=== PATIENT | male | born 1965 ===

== ENCOUNTER 2018-04-18 11:06 | Outpatient (CLI) | payer MEDICAID | END 2018-04-18 11:07 | disposition home or self-care (01) | LOC: LAB 11:06 ==

== ENCOUNTER 2018-05-05 11:10 | Inpatient (IN) | payer MEDICAID ==
[2018-05-05 11:23] VITALS: BMI 21.1
[2018-05-05] MEDS ORDERED: Sodium Chloride 0.9% 1,000 ML IV STA (11:36)
[2018-05-05] MEDS ORDERED: Vancomycin 1gm in NS 250ml 1 GM/250 ML BAG IVPB STA (11:37)
--- NOTE | 2018-05-05 11:42 | ED PDOC ---
Arrival/HPI - General Chief Complaint: Male Genitourinary Time Seen by Provider: 05/05/18 11:12 Historian: Patient - History of Present Illness Narrative History of Present Illness (Text): 05/05/18 11:37 A 52 year old male, whose past medical history includes anal cancer, presents to the emergency department complaining of perineal rash x1 week. Patient reports he saw his oncologist, Dr. Bustillo, last Tuesday for similar symptoms. Patient notes he saw Dr. Bustillo earlier today with no change in his symptoms and was sent into the ER as Dr. Bustillo was concerned the problem may be an intra-abdominal issue. Per Dr. Bustillo, the patient failed his patient therapy of antibiotics. Patient denies any fever, chills, shortness of breath, chest pain, or any other complaints. Oncologist: Dr. Bustillo PMD: Dr. Benavidez Time/Duration: > week Symptom Onset: Gradual Symptom Course: Unchanged Activities at Onset: Light Context: Home Past Medical History - Provider Review Nursing Documentation Reviewed: Yes - Infectious Disease Hx of Infectious Diseases: None - Cardiac Hx Hypertension: No - Pulmonary Hx Tuberculosis: No - Neurological Hx Seizures: No - HEENT Hx HEENT Disorder: No - Renal Hx Renal Disorder: No - Endocrine/Metabolic Hx Endocrine Disorders: No - Hematological/Oncological Hx Anemia: No Hx Sickle Cell Disease: No - Musculoskeletal/Rheumatological Hx Falls: Yes (alcoholic) - Gastrointestinal Hx Gastrointestinal Disorders: No Hx Hemorrhoids: Yes (current chief complaint) - Genitourinary/Gynecological Hx Sexually Transmitted Diseases: No - Psychiatric Hx Depression: Yes Hx Substance Use: Yes - Surgical History Other/Comment: RIGHT CHEEK, LEFT BARROS SX - Anesthesia Hx Anesthesia: Yes Hx Anesthesia Reactions: No - Suicidal Assessment Feels Threatened In Home Enviroment: No Family/Social History - Physician Review Nursing Documentation Reviewed: Yes Family/Social History: No Known Family HX Smoking Status: Current Some Days Smoker Hx Alcohol Use: Yes Hx Substance Use: Yes Allergies/Home Meds Allergies/Adverse Reactions: Allergies No Known Allergies Allergy (Verified 05/05/18 11:26) Home Medications: Home Meds Medication Instructions Recorded Confirmed Emtricitabine/Tenofovir Diso 1 tab PO DAILY 02/06/18 04/23/18 [Truvada 200 MG-300 MG] Ergocalciferol [Drisdol 50,000 50,000 iu PO Q7D 02/06/18 04/23/18 Intl Units Cap] Mirtazapine [Remeron] 15 mg PO HS 02/06/18 04/23/18 Naproxen 500 mg PO BID PRN 02/06/18 04/23/18 Raltegravir Potassium [Isentress] 400 mg PO BID 02/06/18 04/23/18 traZODone [Desyrel] 50 mg PO HS 02/06/18 04/23/18 Review of Systems - Physician Review All systems were reviewed & negative as marked: Yes - Review of Systems Constitutional: absent: Fevers Respiratory: absent: SOB Physical Exam - Physical Exam Narrative Physical Exam (Text): 05/05/18 11:37 Constitutional: No acute distress. Head: Normocephalic. Atraumatic. Eyes: PERRL. ENT: Moist mucous membranes. Neck: Supple. Cardiovascular: Regular rate. Chest: No tenderness. Respiratory: Clear to auscultation bilaterally. GI: Soft. Nontender. Nondistended. : Erythematous, diffused to bilateral inguinal area, scrotal area, and base of penis area, warm to touch, tender. Back: No CVA tenderness. Musculoskeletal: No tenderness or swelling of extremities. Skin: As above. Neurologic: Alert, no focal deficit. Vital Signs Reviewed: Yes Vital Signs Temp Pulse Resp BP Pulse Ox 05/05/18 11:23 98.6 F 96 H 20 117/81 99 Temperature: Afebrile Blood Pressure: Normal Pulse: Tachycardic Respiratory Rate: Normal Appearance: Positive for: Well-Appearing, Non-Toxic Medical Decision Making ED Course and Treatment: 05/05/18 11:37 Impression: 52 year old male presents to the emergency department complaining of perineal rash x1 week. Plan: -- Type and screen -- CT of abdomen and pelvis -- EKG -- Labs -- CBC -- COAGs -- Chest X-ray -- IV fluids -- Vancomycin -- Blood culture -- Urine culture -- Urinalysis -- Reassess and disposition Prior Visits: Notes and results from previous visits were reviewed. Progress Notes: 05/05/18 12:04 EKG: Ordered, reviewed, and independently interpreted the EKG. Rate : 87 BPM Rhythm : NSR Interpretation : No ST-segment elevations. 05/05/18 14:10 Procedure: Chest X-ray Dictator: Amauri Conrad MD Impression: No active disease. 05/05/18 15:46 Procedure: CT of abdomen and pelvis Dictator: Pramod Bryan MD Impression: No evidence of perianal abscess formation. 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 Moderate circumferential urinary bladder wall thickening. Additional findings as discussed above. Dr. Mukherjee accepts patient to hospitalist service. - Scribe Statement The provider has reviewed the documentation as recorded by the Scribe Viktoria Zarate All medical record entries made by the Scribe were at my direction and personally dictated by me. I have reviewed the chart and agree that the record accurately reflects my personal performance of the history, physical exam, medical decision making, and the department course for this patient. I have also personally directed, reviewed, and agree with the discharge instructions and disposition. Disposition/Present on Arrival - Present on Arrival Any Indicators Present on Arrival: No History of DVT/PE: No History of Uncontrolled Diabetes: No Urinary Catheter: No History of Decub. Ulcer: No History Surgical Site Infection Following: None - Disposition Have Diagnosis and Disposition been Completed?: Yes Diagnosis: Cellulitis, Failure of outpatient treatment Disposition: HOSPITALIZED Disposition Time: 12:00 Patient Plan: Admission Condition: GUARDED Discharge Instructions (ExitCare): Cellulitis (ED) Forms: [employer] (Tajik)
[2018-05-05 12:15] LABS: URINE BILIRUBIN NEGATIVE (NEGATIVE); URINE BLOOD NEGATIVE (NEGATIVE); URINE GLUCOSE (UA) NEGATIVE (NEGATIVE); URINE LEUKOCYTE ESTERASE NEGATIVE Leu/uL (NEGATIVE); URINE PROTEIN TRACE mg/dL (<30 mg/dL); URINE UROBILINOGEN 0.2 E.U./dL (<1 E.U./dL)
[2018-05-05 12:18] LABS: URINE APPEARANCE CLEAR (CLEAR); URINE COLOR DARK YELLOW (YELLOW)
[2018-05-05 12:29] LABS: URINE RBC 0 - 2 /hpf (0-2)
[2018-05-05 12:30] LABS: URINE AMORPHOUS SEDIMENT SMALL /hpf; URINE BACTERIA MANY /hpf; URINE EPITHELIAL CELLS 0 - 2 /hpf (0-5)
[2018-05-05 12:59] LABS: ALBUMIN 3.4 g/dL (3.0-4.8); ALT/SGPT 153 U/L (7-56); AST/SGOT 107 U/L (17-59); BLOOD UREA NITROGEN 14 mg/dL (7-21); CALCIUM 8.5 mg/dL (8.4-10.5); GFR NON-AFRICAN AMERICAN > 60
[2018-05-05 13:00] LABS: HEMOGLOBIN 10.8 g/dL (14.0-18.0); LYMPH # 0.1 (1.2-3.4); LYMPH % 8.8 % (22.0-35.0); MEAN CELL VOLUME 87.3 fl (80.0-105.0); MEAN CORPUSCULAR HEMOGLOBIN 28.5 pg (25.0-35.0); MEAN CORPUSCULAR HGB CONC 32.6 g/dl (31.0-37.0); MEAN PLATELET VOLUME 10.2 fl (7.0-11.0); MONO # 0.1 (0.1-0.6); MONO % 12.7 % (1.0-6.0); PLATELET COUNT 176 10^3/uL (120.0-450.0); RBC 3.79 10^6/uL (3.5-6.1); RED CELL DISTRIBUTION WIDTH 16.2 % (11.5-14.5)
[2018-05-05 13:03] LABS: PARTIAL THROMBOPLASTIN TIME 29.1 Seconds (26.9-38.3); PROTHROMBIN TIME 11.1 SECONDS (9.4-12.5)
[2018-05-05] MEDS ORDERED: Iohexol 350 MG/100 ML VIAL ONE (13:07)
--- NOTE | 2018-05-05 14:06 | RAD ---
Date of service: 05/05/2018 PROCEDURE: CHEST RADIOGRAPH, 1 VIEW HISTORY: perineal cellulitis COMPARISON: None available. FINDINGS: LUNGS: Clear. PLEURA: No pneumothorax or pleural fluid seen. CARDIOVASCULAR: No aortic atherosclerotic calcification present. Normal. OSSEOUS STRUCTURES: No significant abnormalities. VISUALIZED UPPER ABDOMEN: Normal. OTHER FINDINGS: None. IMPRESSION: No active disease.
[2018-05-05 14:10] LABS: ANISOCYTOSIS 1+; HYPOCHROMIA 1+; LYMPHOCYTE 18 % (22.0-35.0); MONOCYTE 2 % (1.0-6.0); NEUTROPHIL 80 % (50.0-70.0); PLATELET ESTIMATE NORMAL (NORMAL)
[2018-05-05 14:11] LABS: OVALOCYTES SLIGHT; TOXIC GRANULATION 1+
--- NOTE | 2018-05-05 15:41 | CT ---
Date of service: 05/05/2018 PROCEDURE: CT Abdomen and Pelvis with contrast HISTORY: perineal cellulitis, r/o abscess COMPARISON: Comparison is made with the previous PET-CT dated 03/09/2018 TECHNIQUE: Contrast dose: 100 mL of Omnipaque 350 intravenously. Axial and reformatted coronal and sagittal CT images of the abdomen and pelvis were obtained after IV contrast administration. Radiation dose: Total exam DLP = 234.04 mGy-cm. This CT exam was performed using one or more of the following dose reduction techniques: Automated exposure control, adjustment of the mA and/or kV according to patient size, and/or use of iterative reconstruction technique. FINDINGS: LOWER THORAX: No evidence of infiltrate or consolidation in the lungs. LIVER: The liver is enlarged. No evidence of suspicious mass in the liver. The portal vein is patent. GALLBLADDER AND BILE DUCTS: The gallbladder is contracted. No CT evidence of acute cholecystitis. PANCREAS: Unremarkable. No gross lesion or ductal dilatation. SPLEEN: Unremarkable. ADRENALS: Unremarkable. No mass. KIDNEYS AND URETERS: Unremarkable. No hydronephrosis. No solid mass. VASCULATURE: Unremarkable. No aortic aneurysm. No aortic atherosclerotic calcification or mural plaque present. BOWEL: No obstruction. No gross mural thickening. Cqbi-xo-aklfwslb constipation is noted. There is diffuse thickening of the distal rectum and anal canal noted. No definite CT evidence of perianal abscess. APPENDIX: No evidence of appendicitis. PERITONEUM: Unremarkable. No free fluid. No free air. LYMPH NODES: There are mildly enlarged lymph nodes in at the inguinal region left more than right again noted. BLADDER: Uffs-ph-[id number] circumferential urinary bladder wall thickening is noted. REPRODUCTIVE: The prostate is mildly enlarged. BONES: There is a defined lytic bony lesion noted at the anterior aspect of L1 vertebral body. OTHER FINDINGS: None. IMPRESSION: No evidence of perianal abscess formation. 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 Moderate circumferential urinary bladder wall thickening. Additional findings as discussed above.
[2018-05-05] MEDS: Piperacillin/Tazobact 3.375 gm 100 ML IVPB SCH ×2 (18:23→22:21)
[2018-05-05] MEDS: Vancomycin 1gm in NS 250ml 1 GM/250 ML BAG IVPB SCH (18:30)
--- NOTE | 2018-05-05 19:18 | CP.PCM.HP ---
<MaximoWhit - Last Filed: 05/05/18 23:47> History of Present Illness - History of Present Illness History of Present Illness: Whit Marsh, PGY-1 H&P Medicine Note for: Dr. Mukherjee CC: Burning pain in perineal area Pt is a 52 yo M with pmhx of AIDS (last CD4 count <20 on 04/25/18), anal ca who comes in to the ED for complaint of perirectal pain related to his current treatment regiment of chemo and radiation. Pt states that he received his last chemo treatment three days ago and that he receives radiation to the area M-F. Pt states that he has been having 10/10 pain in the area and he deneis any constipation or diarrhea, any bladder or bowel incontinence. He admits to an external hemorrhoid but states that it does not cause him pain during defication at this time due to him taking stool softeners to prevent him straining. He took an outpt course of abx and has not responded and presents to the ED from doctors office to r/o intra-abd infection. Pt states that he has not had any fevers, chills, SOB, cough, chest pain, palpations, abd pain, n/v, c/d, dysuria, or hematuria. Pmhx: Anal Ca, AIDS (CD4 count <20 on 04/25/18) Pshx: Deneis Meds: Truvada, hydrocortisone 2.5% topical All: NKDA Social: quit smoking 30 years ago, denies recent etoh or illicit drug use (though has hx of IVDA) Fam hx: Denies PMD: [facility]: [facility] Present on Admission - Present on Admission Any Indicators Present on Admission: No Review of Systems - Review of Systems Review of Systems: 12 point ROS reviewed and negative except for noted in HPI above. Past Patient History - Infectious Disease Hx of Infectious Diseases: None - Past Medical History & Family History Past Medical History?: Yes - Past Social History Smoking Status: Current Some Days Smoker - CARDIAC Hx Hypertension: No - PULMONARY Hx Tuberculosis: No - NEUROLOGICAL Hx Seizures: No - HEENT Hx HEENT Problems: No - RENAL Hx Chronic Kidney Disease: No - ENDOCRINE/METABOLIC Hx Endocrine Disorders: No - HEMATOLOGICAL/ONCOLOGICAL Hx Anemia: No Hx Sickle Cell Disease: No - MUSCULOSKELETAL/RHEUMATOLOGICAL Hx Falls: Yes (alcoholic) - GASTROINTESTINAL Hx Gastrointestinal Disorders: No Hx Hemorrhoids: Yes (current chief complaint) - GENITOURINARY/GYNECOLOGICAL Hx Sexually Transmitted Disorders: No - PSYCHIATRIC Hx Depression: Yes Hx Substance Use: Yes - SURGICAL HISTORY Other/Comment: RIGHT CHEEK, LEFT BARROS SX - ANESTHESIA Hx Anesthesia: Yes Hx Anesthesia Reactions: No Meds Allergies/Adverse Reactions: Allergies Allergy/AdvReac Type Severity Reaction Status Date / Time No Known Allergies Allergy Verified 05/05/18 11:26 Physical Exam - Constitutional Appears: Non-toxic, No Acute Distress, Other (Uncomfortable) - Head Exam Head Exam: ATRAUMATIC, NORMAL INSPECTION, NORMOCEPHALIC - Eye Exam Eye Exam: EOMI, Normal appearance, PERRL - Respiratory Exam Respiratory Exam: Clear to Auscultation Bilateral, NORMAL BREATHING PATTERN. absent: Accessory Muscle Use, Prolonged Expiratory Phase, Rales, Rhonchi, Wheezes - Cardiovascular Exam Cardiovascular Exam: RRR, +S1, +S2. absent: Gallop, Rubs - GI/Abdominal Exam GI & Abdominal Exam: Normal Bowel Sounds, Soft. absent: Distended, Firm, Guarding, Tenderness - Rectal Exam Rectal Exam: Hemorrhoids (external) Additional comments: Pt also has noted skin breakdown surrounding the anal canal. There is discoloration over the pts gluteal area which is likely 2/2 radiation. Pt is also noted to have discoloration of scrotum also likely 2/2 radiation exposure from treatment. There is no noted purulent discharge around skin breakdown noted on exam. - Extremities Exam Extremities exam: Positive for: normal capillary refill, normal inspection, pedal pulses present - Back Exam Back exam: NORMAL INSPECTION. absent: CVA tenderness (L), CVA tenderness (R) - Neurological Exam Neurological exam: Alert, Oriented x3 - Psychiatric Exam Psychiatric exam: Normal Affect, Normal Mood - Skin Skin Exam: Dry, Normal Color, Warm Results - Vital Signs Recent Vital Signs: Last Vital Signs Temp 98.6 F 05/05/18 11:23 Pulse 90 05/05/18 18:09 Resp 18 05/05/18 18:09 BP 130/77 05/05/18 18:09 Pulse Ox 98 05/05/18 18:09 - Labs Result Diagrams: 05/05/18 12:30 01/25/19 12:30 Labs: Laboratory Results - last 24 hr 05/05/18 05/05/18 05/05/18 11:55 12:30 12:30 WBC 1.0 L* RBC 3.79 Hgb 10.8 L Hct 33.1 L MCV 87.3 MCH 28.5 MCHC 32.6 RDW 16.2 H Plt Count 176 MPV 10.2 Neut % (Auto) 73.1 H Lymph % (Auto) 8.8 L [place] % (Auto) 12.7 H Eos % (Auto) 2.0 Baso % (Auto) 0.0 Lymph # (Auto) 0.1 L [place] # (Auto) 0.1 Eos # (Auto) 0.0 Baso # (Auto) 0.00 Absolute Neuts (auto) 0.76 L Neutrophils % (Manual) 80 H Lymphocytes % (Manual) 18 L Monocytes % (Manual) 2 Toxic Granulation 1+ Platelet Evaluation Normal Hypochromasia 1+ Anisocytosis (manual) 1+ Ovalocytes Slight PT 11.1 INR 1.00 APTT 29.1 Sodium Potassium Chloride Carbon Dioxide Anion Gap BUN Creatinine Est GFR ( Amer) Est GFR (Non-Af Amer) Random Glucose Calcium Phosphorus Magnesium Total Bilirubin AST ALT Alkaline Phosphatase Total Protein Albumin Globulin Albumin/Globulin Ratio Urine Color Dark yellow Urine Appearance Clear Urine pH 6.0 Ur Specific [place] >= 1.030 Urine Protein Trace H Urine Glucose (UA) Negative Urine Ketones Negative Urine Blood Negative Urine Nitrate Negative Urine Bilirubin Negative Urine Urobilinogen 0.2 Ur Leukocyte Esterase Negative Urine RBC 0 - 2 Urine WBC 1 - 3 Ur Epithelial Cells 0 - 2 Amorphous Sediment Small Urine Bacteria Many Blood Type Blood Type Confirm Antibody Screen BBK History Checked 05/05/18 05/05/18 05/05/18 12:30 13:00 14:00 WBC RBC Hgb Hct MCV MCH MCHC RDW Plt Count MPV Neut % (Auto) Lymph % (Auto) [place] % (Auto) Eos % (Auto) Baso % (Auto) Lymph # (Auto) [place] # (Auto) Eos # (Auto) Baso # (Auto) Absolute Neuts (auto) Neutrophils % (Manual) Lymphocytes % (Manual) Monocytes % (Manual) Toxic Granulation Platelet Evaluation Hypochromasia Anisocytosis (manual) Ovalocytes PT INR APTT Sodium 137 Potassium 3.8 Chloride 105 Carbon Dioxide 27 Anion Gap 9 L BUN 14 Creatinine 0.6 L Est GFR ( Amer) > 60 Est GFR (Non-Af Amer) > 60 Random Glucose 89 Calcium 8.5 Phosphorus 3.3 Magnesium 2.3 H Total Bilirubin 0.6 AST 107 H D ALT 153 H Alkaline Phosphatase 69 Total Protein 7.0 Albumin 3.4 Globulin 3.5 Albumin/Globulin Ratio 1.0 L Urine Color Urine Appearance Urine pH Ur Specific [place] Urine Protein Urine Glucose (UA) Urine Ketones Urine Blood Urine Nitrate Urine Bilirubin Urine Urobilinogen Ur Leukocyte Esterase Urine RBC Urine WBC Ur Epithelial Cells Amorphous Sediment Urine Bacteria Blood Type A POSITIVE Blood Type Confirm A POSITIVE Antibody Screen Negative BBK History Checked No verified bt Assessment & Plan - Assessment and Plan (Free Text) Assessment: Pt is a 52 yo M with pmhx of AIDS (last CD4 count <20 on 04/25/18), anal ca who comes in to the ED for complaint of perirectal pain related to his current treatment regiment of chemo and radiation. Pt had CT done in ED and it showed no perianal abscess. It also showed moderate diffuse thickening of the distal rectum and anal canal - prelim read. Plan: 1) Amara-anal scarring: - Pt has noted breakdown in the perianal region - Miralax and colace given to ensure that the pt doesnt strain - Pt is currently being treated with zosyn and vanc - Pt given hydrocortisone cream - ID consulted - Wound consult placed 2) AIDS: - Pt last CD4 count is noted to be <20 on 04/25/16 - TMP/SMX DS tab 3x/wk - Zithromax 1200mg qwk - CXR: NAD 3) Leukopenia: - Likely 2/2 to combination of AIDS and marrow supression from chemo agents - Placed on neutropenic precautions - Heme/Onc consulted PPx: DVT: Lovenox GI: protonix Seen and discussed with Dr. Yaz Marsh, PGY-1 <Jude Mukherjee - Last Filed: 05/06/18 18:39> Results - Vital Signs Recent Vital Signs: Last Vital Signs Temp 100.5 F H 05/06/18 17:19 Pulse 86 05/06/18 17:12 Resp 19 05/06/18 17:12 BP 123/80 05/06/18 17:12 Pulse Ox 95 05/06/18 17:12 - Labs Result Diagrams: 05/06/18 05:00 05/06/18 05:00 Labs: Laboratory Results - last 24 hr 05/06/18 05/06/18 05:00 05:00 WBC 1.0 L* RBC 3.74 Hgb 10.8 L Hct 32.5 L MCV 86.9 MCH 28.9 MCHC 33.2 RDW 15.8 H Plt Count 174 MPV 10.1 Neut % (Auto) 67.7 Lymph % (Auto) 12.7 L [place] % (Auto) 17.6 H Eos % (Auto) 2.0 Baso % (Auto) 0.0 Lymph # (Auto) 0.1 L [place] # (Auto) 0.2 Eos # (Auto) 0.0 Baso # (Auto) 0.00 Absolute Neuts (auto) 0.69 L Sodium 137 Potassium 4.4 Chloride 104 Carbon Dioxide 28 Anion Gap 9 L BUN 10 Creatinine 0.7 L Est GFR ( Amer) > 60 Est GFR (Non-Af Amer) > 60 Random Glucose 93 Calcium 8.5 Total Bilirubin 0.8 AST 99 H ALT 141 H Alkaline Phosphatase 84 Total Protein 7.0 Albumin 3.5 Globulin 3.6 Albumin/Globulin Ratio 1.0 L Attending/Attestation - Attestation I have personally seen and examined this patient.: Yes I have fully participated in the care of the patient.: Yes I have reviewed all pertinent clinical information: Yes Notes (Text): 05/06/18 18:33 Attending note; Patient seen and examined with resident in ER. Patient is complaining of chills. Denies any fevers. Complaining of severe pain in the perianal area/ buttock area. Patient is a 52-year-old male with pmhx of AIDS (last CD4 count <20 on 04/25/18), anal cancer who comes in to the ED for complaint of perirectal pain related to his current treatment regiment of chemo and radiation. Pt states that he receive d his last chemo treatment three days ago and that he receives radiation to the area Tuesday to Tuesday. Patient was sent in by radiation oncologist for increasing redness/tenderness in the radiation site. 1. Cellulitis versus radiation induced skin changes; started on IV vancomycin and Zosyn. ID evaluation requested. 2. Neutropenia; WBC count is 1. Case discussed with oncology Dr. Ren in detail. Monitor for fever. On neutropenic precautions. 3. AIDS; patient is on Isentress and Truvuda. Last CD4 count was less than 20. Started on Zithromax for Mac prophylaxis. Started on Bactrim for PCP prop hylaxis. 4. Severe pain; status post radiation. CT scan showed no evidence of perianal abscess. Showed thickening of the rectal and anal wall and moderate constipation. Continue Anusol cream. 5. Constipation; continue MiraLAX and Colace. 6. Homelessness; we'll get psychotherapist social worker evaluation. Prognosis is poor secondary to AIDS, advanced cancer and homelessness. Monitor patient closely. Upon discharge patient will follow-up with Dr. Ren oncology and Dr. Bustillo radiation oncology.
[2018-05-05] MEDS: Hydrocortisone 2.5% Rectal Cream(30 gm) PR SCH (22:22)
--- NOTE | 2018-05-05 23:23 | CARD ---
APPROVED REPORT Date of service: 05/05/2018 EKG Measurement Heart [id number] <Conclusion> Poor data quality, interpretation may be adversely affected Normal sinus rhythm Normal ECG
[2018-05-06] MEDS: Vancomycin 1gm in NS 250ml 1 GM/250 ML BAG IVPB SCH ×2 (05:58→17:18)
[2018-05-06] MEDS: Pantoprazole 40 mg EC Tab PO SCH (05:58)
[2018-05-06 06:42] LABS: HEMOGLOBIN 10.8 g/dL (14.0-18.0); LYMPH # 0.1 (1.2-3.4); LYMPH % 12.7 % (22.0-35.0); MEAN CELL VOLUME 86.9 fl (80.0-105.0); MEAN CORPUSCULAR HEMOGLOBIN 28.9 pg (25.0-35.0); MEAN CORPUSCULAR HGB CONC 33.2 g/dl (31.0-37.0); MEAN PLATELET VOLUME 10.1 fl (7.0-11.0); MONO # 0.2 (0.1-0.6); MONO % 17.6 % (1.0-6.0); RBC 3.74 10^6/uL (3.5-6.1); RED CELL DISTRIBUTION WIDTH 15.8 % (11.5-14.5)
[2018-05-06 06:51] LABS: ALBUMIN 3.5 g/dL (3.0-4.8); ALT/SGPT 141 U/L (7-56); AST/SGOT 99 U/L (17-59); BLOOD UREA NITROGEN 10 mg/dL (7-21); CALCIUM 8.5 mg/dL (8.4-10.5); GFR NON-AFRICAN AMERICAN > 60
[2018-05-06] MEDS ORDERED: Aluminum Hydroxide/Magnesium 30 ML, DiphenhydrAMINE 75 MG, Lidocaine 2% Viscous 30 ML PO PRN (09:46)
[2018-05-06] MEDS: POLYETHYLENE GLYCOL 3350 17 GM/Dose PACKET PO SCH (10:44)
[2018-05-06] MEDS: Enoxaparin 40 mg Syringe SC SCH (10:44)
[2018-05-06] MEDS: Emtricitabine-Tenofovir 200 mg-300 mg Tab PO SCH (10:44)
[2018-05-06] MEDS: Hydrocortisone 2.5% Rectal Cream(30 gm) PR SCH ×2 (10:45→17:19)
[2018-05-06] MEDS: Calamine-Zinc Oxide Lotion (120 ml) TOP SCH ×2 (10:52→17:19)
--- NOTE | 2018-05-06 14:41 | CP.PCM.PN ---
<Frank Conley - Last Filed: 05/06/18 14:34> Subjective - Date & Time of Evaluation Date of Evaluation: 05/06/18 Time of Evaluation: 14:34 - Subjective Subjective: Frank Conley D.O. PGY-3, Internal Medicine Resident, Hospitalist Progress Note 52 year old male with a PMH of AIDS, anal carcinoma s/p chemo and radiation who presented with perirectal pain. Patient was seen and evaluated at bedside. States that he had been having some tongue pain. Rectum still painful. States has a chronic dry cough. Overall ill. Objective - Vital Signs/Intake and Output Vital Signs (last 24 hours): Temp Pulse Resp BP Pulse Ox 99.2 F 92 H 18 131/81 99 05/05/18 19:29 05/05/18 19:29 05/06/18 02:33 05/05/18 19:29 05/05/18 19:29 - Medications Medications: Current Medications Atovaquone (Mepron) 750 mg PO BID [facility]; Protocol Stop: 05/15/18 18:01 Azithromycin (Zithromax) 1,200 mg PO QWK [facility]; Protocol Calamine (Calamine Lotion) 0 ml TOP BID [facility] Last Admin: 05/06/18 10:52 Dose: 120 ml Al Hydrox/Mg Hydrox/Simethicone 30 ml/Diphenhydramine HCl 75 mg/Lidocaine 30 ml 0 ml PO Q2H PRN PRN Reason: Mouth/Throat Pain Docusate Sodium (Colace) 100 mg PO DAILY [facility] Last Admin: 05/06/18 10:44 Dose: 100 mg Emtricitabine/Tenofovir (Truvada 200 Mg-300 Mg) 1 tab PO DAILY [facility]; Protocol Last Admin: 05/06/18 10:44 Dose: 1 tab Enoxaparin Sodium (Lovenox) 40 mg SC DAILY [facility]; Protocol Last Admin: 05/06/18 10:44 Dose: 40 mg Hydrocortisone (Anusol-Hc) 0 gm MO BID [facility] Last Admin: 05/06/18 10:45 Dose: 1 applic Vancomycin HCl (Vancomycin 1gm) 1 gm in 250 mls @ 167 mls/hr IVPB Q12H [facility]; Protocol Last Admin: 05/06/18 05:58 Dose: 167 mls/hr Pantoprazole Sodium (Protonix Ec Tab) 40 mg PO 0600 [facility] Last Admin: 05/06/18 05:58 Dose: 40 mg Polyethylene Glycol (Miralax) 17 gm PO DAILY [facility] Last Admin: 05/06/18 10:44 Dose: 17 gm Raltegravir (Isentress) 400 mg PO BID [facility]; Protocol Last Admin: 05/06/18 10:44 Dose: 400 mg - Labs Labs: 05/06/18 05:00 05/06/18 05:00 PT 11.1 SECONDS (9.4-12.5) 05/05/18 12:30 INR 1.00 05/05/18 12:30 APTT 29.1 Seconds (26.9-38.3) 05/05/18 12:30 - Constitutional Appears: Uncomfortable appearing cachectic male, Non-toxic, No Acute Distress - Head Exam Head Exam: ATRAUMATIC, NORMAL INSPECTION, NORMOCEPHALIC, pharynx with no erythema or lesions, bases of tongue with shall ulcerations - Eye Exam Eye Exam: EOMI, PERRL - Respiratory Exam Respiratory Exam: Clear to Auscultation Bilateral, absent: Accessory Muscle Use, Prolonged Expiratory Phase, Rales, Rhonchi, Wheezes - Cardiovascular Exam Cardiovascular Exam: RRR, +S1, +S2. absent: Gallop, Rubs - GI/Abdominal Exam GI & Abdominal Exam: Normal Bowel Sounds, Soft. absent: Distended, Firm, Guarding, Tenderness - Rectal Exam Rectal Exam: Hemorrhoids (external), skin breakdown surrounding rectum, radiation skin changes, mildly tender, no fluid collection, no discharge - Extremities Exam Extremities exam: Positive for: normal capillary refill, normal inspection, pedal pulses present - Back Exam Back exam: NORMAL INSPECTION. absent: CVA tenderness (L), CVA tenderness (R) - Neurological Exam Neurological exam: Alert, Oriented x4 - Skin Skin Exam: Dry, Normal Color, Warm Assessment and Plan - Assessment and Plan (Free Text) Assessment: 52 year old male with a PMH of AIDS, anal carcinoma s/p chemo and radiation who presented with perirectal pain. Plan: 1. Moderate neutropenia Likely 2/2 to combination of AIDS and marrow suppression from chemo agents Placed on neutropenic precautions Heme/Onc consulted 2. AIDS Last known CD4 is <20 Cont TMP/SMX DS tab 3x/wk, Zithromax 1200mg qwk for ppx Cont antiretroviral therapy with truvada and raltegravir 3. Rectal pain Likely 2/2 to post radiation skin changes Cont miralax and colace to ensure smooth, soft bowel movements 05/05 CT A/P showed no fluid collection near rectum, only inflammation Cont anusol Start calamine lotion 4. Dry cough Given AIDS status with very low CD4 count will consult ID Pending recs Start cepacol 5. Tongue lesions Possible mucositis 2/2 chemo vs AIDS related, although does not appear infectious Start magic mouth wash Ppx: lovenox/protonix Patient was seen and examined and case was discussed at length during rounds with attending physician Dr. Yaz Pierson <Jude Mukherjee - Last Filed: 05/06/18 18:44> Objective - Vital Signs/Intake and Output Vital Signs (last 24 hours): Temp Pulse Resp BP Pulse Ox 100.5 F H 86 19 123/80 95 05/06/18 17:19 05/06/18 17:12 05/06/18 17:12 05/06/18 17:12 05/06/18 17:12 - Medications Medications: Current Medications Acetaminophen (Tylenol 325mg Tab) 650 mg PO Q4H PRN PRN Reason: Fever >100.4 F Last Admin: 05/06/18 17:19 Dose: 650 mg Atovaquone (Mepron) 750 mg PO BID [facility]; Protocol Stop: 05/15/18 18:01 Last Admin: 05/06/18 17:19 Dose: 750 mg Azithromycin (Zithromax) 1,200 mg PO QWK [facility]; Protocol Benzocaine/Menthol (Cepacol Sore Throat) 1 suellen MT Q2H PRN PRN Reason: Sore Throat Calamine (Calamine Lotion) 0 ml TOP BID [facility] Last Admin: 05/06/18 17:19 Dose: 1 ml Al Hydrox/Mg Hydrox/Simethicone 30 ml/Diphenhydramine HCl 75 mg/Lidocaine 30 ml 0 ml PO Q2H PRN PRN Reason: Mouth/Throat Pain Last Admin: 05/06/18 17:25 Dose: 1 soln Docusate Sodium (Colace) 100 mg PO DAILY [facility] Last Admin: 05/06/18 10:44 Dose: 100 mg Emtricitabine/Tenofovir (Truvada 200 Mg-300 Mg) 1 tab PO DAILY [facility]; Protocol Last Admin: 05/06/18 10:44 Dose: 1 tab Enoxaparin Sodium (Lovenox) 40 mg SC DAILY [facility]; Protocol Last Admin: 05/06/18 10:44 Dose: 40 mg Hydrocortisone (Anusol-Hc) 0 gm MO BID [facility] Last Admin: 05/06/18 17:19 Dose: 1 applic Pantoprazole Sodium (Protonix Ec Tab) 40 mg PO 0600 [facility] Last Admin: 05/06/18 05:58 Dose: 40 mg Polyethylene Glycol (Miralax) 17 gm PO DAILY [facility] Last Admin: 05/06/18 10:44 Dose: 17 gm Raltegravir (Isentress) 400 mg PO BID [facility]; Protocol Last Admin: 05/06/18 17:19 Dose: 400 mg - Labs Labs: 05/06/18 05:00 05/06/18 05:00 PT 11.1 SECONDS (9.4-12.5) 05/05/18 12:30 INR 1.00 05/05/18 12:30 APTT 29.1 Seconds (26.9-38.3) 05/05/18 12:30 Attending/Attestation - Attestation I have personally seen and examined this patient.: Yes I have fully participated in the care of the patient.: Yes I have reviewed all pertinent clinical information, including history, physical exam and plan: Yes Notes (Text): 05/06/18 18:41 Attending note; Patient seen and examined with resident. Patient is complaining of chills. No fever in the morning. Complaining of severe pain in the perianal area pain. Complaining of throat pain and difficulty swallowing. Patient is a 52-year-old male with pmhx of AIDS (last CD4 count <20 on 04/25/18), anal cancer who comes in to the ED for complaint of perirectal pain related to his current treatment regiment of chemo and radiation. Pt states that he received his last chemo treatment three days ago and that he receives radiation to the area Tuesday to Tuesday. Patient was sent in by radiation oncologist for increasing redness/tenderness in the radiation site. 1. Cellulitis versus radiation induced skin changes; ID evaluation appreciated. Most likely radiation-induced changes. Antibiotics stopped. Blood culture and urine culture is negative so far. 2. Neutropenia; WBC count is 1. Case discussed with oncology Dr. Ren in detail. Monitor for fever. On neutropenic precautions. 3. AIDS; patient is on Isentress and Truvuda. Last CD4 count was less than 20. Started on Zithromax for Mac prophylaxis. Bactrim stopped secondary to neutropenia. Started on atovaquone for PCP prophylaxis. 4. Severe pain; status post radiation. CT scan showed no evidence of perianal abscess. Showed thickening of the rectal and anal wall and moderate constipation. Continue Anusol cream. 5. Constipation; continue MiraLAX and Colace. 6. Mucositis; continue magic mouthwash on Cepacol lozenges. 6. Homelessness; we'll get health social work professor evaluation. Patient had MAXIMUM TEMPERATURE of 100.5 in the evening. Started on vancomycin and cefepime. We will follow up with ID closely. Prognosis is poor secondary to AIDS, advanced cancer and homelessness. Monitor patient closely. Upon discharge patient will follow-up with Dr. Ren oncology and Dr. Bustillo radiation oncology.
[2018-05-06] MEDS: Atovaquone 750 mg/5 ml Susp UD PO SCH (17:19)
--- NOTE | 2018-05-06 17:40 | CON ---
DATE: 05/06/2018 LOCATION: The patient seen earlier today room 364, bed 2. CHIEF COMPLAINT: Pain around his scrotal area times several days. HISTORY OF PRESENT ILLNESS: This is a 52-year-old male with a history of anal cancer and saw his oncologist Dr. Bustillo. The patient concerned about pain that is around his scrotal area and perineal area. He had received radiation for his anal cancer. He denies any fevers or chills and no nausea or vomiting. 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 PAST MEDICAL HISTORY: Significant for the squamous cell anal cancer and also end-stage AIDS with a CD4 count of less than 20. Noncompliant with his medications. PAST SURGICAL HISTORY: Noncontributory. ALLERGIES: THE PATIENT HAS NO KNOWN ALLERGIES. MEDICATIONS: He states he is on Truvada, but he does not know all the names of his HIV medication, he is noncompliant with them. SOCIAL HISTORY: The patient has a history of intravenous drug abuse and at this time he states he is homeless. He also suffers from depression, alcohol abuse, and tobacco use. REVIEW OF SYSTEMS: A 12-point review of systems is otherwise reviewed. PHYSICAL EXAMINATION: GENERAL: He is in bed appearing chronically ill, debilitating, cachectic. VITAL SIGNS: Temperature of 98, T-max is 99.2, heart rate of 96, respiratory rate of 20, blood pressure 117/81. BMI is 21 with O2 saturation 98%. HEENT: There is temporal wasting. Examination of perineal area and scrotal area shows erythema. Not warm to touch, no discharge. LABORATORY DATA: White count of 1000, hemoglobin of 10, and platelets of 176. Coagulation is noted. Chemistry reveals the LFT's to be elevated, BUN 14, creatinine 0.6. Urinalysis is noted. Microbiology, urine culture 01/2018 at [facility] hem[facility] strep [facility]. Stool culture from 01/2018, no Salmonella, no Shigella or no Campylobacter. The patient had a CAT scan of the abdomen and pelvis. No evidence of abscess. Diffuse rectum and canal. The patient had a chest x-ray, which is clear. ASSESSMENT AND PLAN: This is a 52-year-old male with end-stage acquired immunodeficiency syndrome, depression, alcohol use, tobacco use, squamous cell anal cancer, now presenting with pain and systemic inflammatory response with tachycardia and leukopenia with radiation dermatitis and we will continue his Raltegravir Isentress and Truvada which is an emtricitabine and tenofovir. We will discontinue the Bactrim prophylaxis because of his leukopenia. We will use Mepron for PCP prophylaxis instead of Bactrim because of a bone marrow suppression and do check on culture result. The patient is also on Zithromax for MAC prophylaxis. Long-term prognosis for this patient who is now compliant end-stage acquired immunodeficiency syndrome, homeless, he is quite poor. Human immunodeficiency virus viral load was in 03/2018 is 3.25 logs with CD4 of 6% with absolute CD4 count of less than 20. We will follow with you. No need for intravenous antibiotics at this time. Hany Cortes MD
[2018-05-06] MEDS ORDERED: Cefepime 0.5 GM in Sodium Chloride 0.9% 100 ML IVPB SCH ×3 (18:45→20:00)
[2018-05-06] MEDS: Cefepime 0.5 GM in Sodium Chloride 0.9% 100 ML IVPB SCH (21:21)
[2018-05-07] MEDS: Pantoprazole 40 mg EC Tab PO SCH (05:42)
[2018-05-07] MEDS: Cefepime 0.5 GM in Sodium Chloride 0.9% 100 ML IVPB SCH (05:42)
[2018-05-07 06:57] LABS: EOS % 1.1 % (1.5-5.0); HEMOGLOBIN 10.2 g/dL (14.0-18.0); LYMPH # 0.1 (1.2-3.4); LYMPH % 12.9 % (22.0-35.0); MEAN CELL VOLUME 86.3 fl (80.0-105.0); MEAN CORPUSCULAR HEMOGLOBIN 27.9 pg (25.0-35.0); MEAN CORPUSCULAR HGB CONC 32.4 g/dl (31.0-37.0); MEAN PLATELET VOLUME 9.5 fl (7.0-11.0); MONO # 0.2 (0.1-0.6); MONO % 19.4 % (1.0-6.0); RBC 3.65 10^6/uL (3.5-6.1); RED CELL DISTRIBUTION WIDTH 15.5 % (11.5-14.5)
[2018-05-07 07:01] LABS: WHITE BLOOD COUNT 0.9 10^3/uL (4.5-11.0)
[2018-05-07 07:04] LABS: ALB/GLOB RATIO 0.9 (1.1-1.8); ALBUMIN 3.3 g/dL (3.0-4.8); ALT/SGPT 116 U/L (7-56); AST/SGOT 83 U/L (17-59); BLOOD UREA NITROGEN 10 mg/dL (7-21); CALCIUM 8.4 mg/dL (8.4-10.5); GFR NON-AFRICAN AMERICAN > 60
[2018-05-07] MEDS ORDERED: Vancomycin 1gm in NS 250ml 1 GM/250 ML BAG IVPB SCH (10:00)
[2018-05-07] MEDS: Emtricitabine-Tenofovir 200 mg-300 mg Tab PO SCH (10:50)
[2018-05-07] MEDS: Calamine-Zinc Oxide Lotion (120 ml) TOP SCH ×2 (10:51→18:33)
[2018-05-07] MEDS: Atovaquone 750 mg/5 ml Susp UD PO SCH ×2 (10:52→18:31)
[2018-05-07] MEDS: Enoxaparin 40 mg Syringe SC SCH (10:52)
--- NOTE | 2018-05-07 12:16 | CP.PCM.PN ---
<Kendra Paez - Last Filed: 05/07/18 12:28> Subjective - Date & Time of Evaluation Date of Evaluation: 05/07/18 Time of Evaluation: 12:13 - Subjective Subjective: INTERNAL MEDICINE PROGRESS NOTE FOR DR. GRACY Paez PGY1 Pt seen and examined at bedside this am. Pt sweating this am and reports feeling cold. He reports continued anorectal pain. Per nursing, pt had 6 episodes of diarrhea. Pt reports he has trouble sleeping. Otherwise denies ROS Objective - Vital Signs/Intake and Output Vital Signs (last 24 hours): Temp Pulse Resp BP Pulse Ox 100.9 F H 94 H 20 109/69 95 05/07/18 08:28 05/07/18 07:39 05/07/18 07:39 05/07/18 07:39 05/07/18 07:39 Intake and Output: 05/07/18 05/07/18 06:59 18:59 Intake Total 120 Output Total 900 Balance -780 - Medications Medications: Current Medications Acetaminophen (Tylenol 325mg Tab) 650 mg PO Q4H PRN PRN Reason: Fever >100.4 F Last Admin: 05/07/18 08:28 Dose: 650 mg Atovaquone (Mepron) 750 mg PO BID [facility]; Protocol Stop: 05/15/18 18:01 Last Admin: 05/07/18 10:52 Dose: 750 mg Azithromycin (Zithromax) 1,200 mg PO QWK [facility]; Protocol Benzocaine/Menthol (Cepacol Sore Throat) 1 suellen MT Q2H PRN PRN Reason: Sore Throat Calamine (Calamine Lotion) 0 ml TOP BID [facility] Last Admin: 05/07/18 10:51 Dose: 1 ml Al Hydrox/Mg Hydrox/Simethicone 30 ml/Diphenhydramine HCl 75 mg/Lidocaine 30 ml 0 ml PO Q2H PRN PRN Reason: Mouth/Throat Pain Last Admin: 05/06/18 17:25 Dose: 1 soln Docusate Sodium (Colace) 100 mg PO DAILY [facility] Last Admin: 05/07/18 10:51 Dose: 100 mg Emtricitabine/Tenofovir (Truvada 200 Mg-300 Mg) 1 tab PO DAILY [facility]; Protocol Last Admin: 05/07/18 10:50 Dose: 1 tab Enoxaparin Sodium (Lovenox) 40 mg SC DAILY [facility]; Protocol Last Admin: 05/07/18 10:52 Dose: 40 mg Hydrocortisone (Anusol-Hc) 0 gm ND BID [facility] Last Admin: 05/06/18 17:19 Dose: 1 applic Meropenem (Merrem Iv 1 Gm Premix) 1 gm in 50 mls @ 100 mls/hr IVPB Q8 [facility]; Protocol Vancomycin HCl (Vancomycin 1gm) 1 gm in 250 mls @ 167 mls/hr IVPB Q12H [facility]; Protocol Stop: 05/13/18 11:16 Pantoprazole Sodium (Protonix Ec Tab) 40 mg PO 0600 [facility] Last Admin: 05/07/18 05:42 Dose: 40 mg Polyethylene Glycol (Miralax) 17 gm PO DAILY [facility] Last Admin: 05/06/18 10:44 Dose: 17 gm Raltegravir (Isentress) 400 mg PO BID [facility]; Protocol Last Admin: 05/07/18 10:51 Dose: 400 mg - Labs Labs: 05/07/18 06:00 05/07/18 06:00 PT 11.1 SECONDS (9.4-12.5) 05/05/18 12:30 INR 1.00 05/05/18 12:30 APTT 29.1 Seconds (26.9-38.3) 05/05/18 12:30 - Constitutional Appears: Unkempt, Cachectic - Head Exam Head Exam: NORMAL INSPECTION, NORMOCEPHALIC - Eye Exam Eye Exam: PERRL - ENT Exam ENT Exam: Mucous Membranes Moist Additional comments: No oral thrush noted. Shallow ulcers noted at base of tongue. - Neck Exam Neck Exam: Normal Inspection. absent: Meningismus - Respiratory Exam Respiratory Exam: NORMAL BREATHING PATTERN. absent: Accessory Muscle Use, Chest Wall Tenderness - Cardiovascular Exam Cardiovascular Exam: RRR, +S1, +S2 - GI/Abdominal Exam GI & Abdominal Exam: Soft. absent: Tenderness - Rectal Exam Rectal Exam: Hemorrhoids (external) Additional comments: skin breakdown around rectum. Tender to palpation and erythematous. Non purulence or discharge. No fluid collection - Extremities Exam Extremities Exam: Normal Inspection. absent: Calf Tenderness - Back Exam Back Exam: NORMAL INSPECTION - Neurological Exam Neurological Exam: Alert, Awake, Oriented x3 - Psychiatric Exam Psychiatric exam: Normal Affect, Normal Mood - Skin Skin Exam: Dry, Intact, Warm Assessment and Plan - Assessment and Plan (Free Text) Assessment: 52 year old male with a PMH of AIDS, anal carcinoma s/p chemo and radiation who presented with perirectal pain. Plan: Moderate neutropenia ANC: 620. Likely 2/2 to combination of AIDS and marrow suppression from chemo agents Placed on neutropenic precautions tylenol prn for neutropenic fevers Heme/Onc consulted AIDS Last known CD4 is <20 Continue TMP/SMX DS tab 3x/wk, Zithromax 1200mg qwk for ppx Continue antiretroviral therapy with truvada and raltegravir Continue atovaquone, vanc, meropenem ID recs appreciated Rectal pain Likely 2/2 to post radiation skin changes Continue laxatives 05/05 CT A/P showed no fluid collection near rectum, only inflammation Cont anusol Start calamine lotion Dry cough Given AIDS status with very low CD4 count will f/u ID recs Continue cepacol Tongue lesions Possible mucositis 2/2 chemo vs AIDS related, although does not appear infectious continue magic mouth wash Ppx: lovenox/protonix Case seen, examined and discussed with attending physician Dr. Gracy Paez PGY1 <Jude Mukherjee - Last Filed: 05/07/18 13:24> Objective - Vital Signs/Intake and Output Vital Signs (last 24 hours): Temp Pulse Resp BP Pulse Ox 100.9 F H 94 H 20 109/69 95 05/07/18 08:28 05/07/18 07:39 05/07/18 07:39 05/07/18 07:39 05/07/18 07:39 Intake and Output: 05/07/18 05/07/18 06:59 18:59 Intake Total 120 Output Total 900 Balance -780 - Medications Medications: Current Medications Acetaminophen (Tylenol 325mg Tab) 650 mg PO Q4H PRN PRN Reason: Fever >100.4 F Last Admin: 05/07/18 08:28 Dose: 650 mg Atovaquone (Mepron) 750 mg PO BID [facility]; Protocol Stop: 05/15/18 18:01 Last Admin: 05/07/18 10:52 Dose: 750 mg Azithromycin (Zithromax) 1,200 mg PO QWK [facility]; Protocol Benzocaine/Menthol (Cepacol Sore Throat) 1 suellen MT Q2H PRN PRN Reason: Sore Throat Calamine (Calamine Lotion) 0 ml TOP BID [facility] Last Admin: 05/07/18 10:51 Dose: 1 ml Al Hydrox/Mg Hydrox/Simethicone 30 ml/Diphenhydramine HCl 75 mg/Lidocaine 30 ml 0 ml PO Q2H PRN PRN Reason: Mouth/Throat Pain Last Admin: 05/06/18 17:25 Dose: 1 soln Docusate Sodium (Colace) 100 mg PO DAILY [facility] Last Admin: 05/07/18 10:51 Dose: 100 mg Emtricitabine/Tenofovir (Truvada 200 Mg-300 Mg) 1 tab PO DAILY [facility]; Protocol Last Admin: 05/07/18 10:50 Dose: 1 tab Enoxaparin Sodium (Lovenox) 40 mg SC DAILY [facility]; Protocol Last Admin: 05/07/18 10:52 Dose: 40 mg Hydrocortisone (Anusol-Hc) 0 gm ND BID [facility] Last Admin: 05/06/18 17:19 Dose: 1 applic Meropenem (Merrem Iv 1 Gm Premix) 1 gm in 50 mls @ 100 mls/hr IVPB Q8 [facility]; Protocol Vancomycin HCl (Vancomycin 1gm) 1 gm in 250 mls @ 167 mls/hr IVPB Q12H [facility]; Protocol Stop: 05/13/18 11:16 Pantoprazole Sodium (Protonix Ec Tab) 40 mg PO 0600 [facility] Last Admin: 05/07/18 05:42 Dose: 40 mg Polyethylene Glycol (Miralax) 17 gm PO DAILY [facility] Last Admin: 05/06/18 10:44 Dose: 17 gm Raltegravir (Isentress) 400 mg PO BID [facility]; Protocol Last Admin: 05/07/18 10:51 Dose: 400 mg - Labs Labs: 05/07/18 06:00 05/07/18 06:00 PT 11.1 SECONDS (9.4-12.5) 05/05/18 12:30 INR 1.00 05/05/18 12:30 APTT 29.1 Seconds (26.9-38.3) 05/05/18 12:30 Attending/Attestation - Attestation I have personally seen and examined this patient.: Yes I have fully participated in the care of the patient.: Yes I have reviewed all pertinent clinical information, including history, physical exam and plan: Yes Notes (Text): 05/07/18 13:21 Attending note; Patient seen and examined with resident. Patient is complaining of chills. has fever of 100.9. Complaining of severe pain in the perianal area pain. Patient is a 52-year-old male with pmhx of AIDS (last CD4 count <20 on 04/25/18), anal cancer who comes in to the ED for complaint of perirectal pain related to his current treatment regiment of chemo and radiation. Pt states that he received his last chemo treatment three days ago and that he receives radiation to the area Tuesday to Tuesday. Patient was sent in by radiation oncologist for increasing redness/tenderness in the radiation site. 1. Cellulitis versus radiation induced skin changes; ID evaluation appreciated. Most likely radiation-induced changes. Blood culture and urine culture is negative so far. 2. Neutropenic fever; started on IV vancomycin and meropenem. Case discussed with ID in detail. WBC count is 0.9. ANC is 620 . Case discussed with oncology Dr. Ren in detail. On neutropenic precautions. no need for neupogen now. recommends neupogen if ANC is < 500. 3. AIDS; patient is on Isentress and Truvuda. Last CD4 count was less than 20. Started on Zithromax for Mac prophylaxis. Bactrim stopped secondary to neutropenia. Started on atovaquone for PCP prophylaxis. 4. Severe pain; status post radiation. CT scan showed no evidence of perianal abscess. Showed thickening of the rectal and anal wall and moderate constipation. Continue Anusol cream. 5. Constipation; continue MiraLAX and Colace. 6. Mucositis; continue magic mouthwash on Cepacol lozenges. 6. Homelessness; we'll get certified social workers in health care evaluation. Prognosis is poor secondary to AIDS, advanced cancer and homelessness. Monitor patient closely. Upon discharge patient will follow-up with Dr. Ren oncology and Dr. Iwona garcia oncology. 05/07/18 13:23
[2018-05-07] MEDS: Hydrocortisone 2.5% Rectal Cream(30 gm) PR SCH ×2 (13:32→18:33)
[2018-05-07] MEDS: Meropenem IV 1 gm in NS 1 GM/50 ML BAG IVPB SCH ×2 (13:35→21:50)
--- NOTE | 2018-05-07 15:30 | PN ---
DATE: 05/07/2018 SUBJECTIVE: The patient was seen earlier today. He did have fevers. PHYSICAL EXAMINATION: VITAL SIGNS: Temperature is 100.9, blood pressure is 109/60, respiratory rate 20, heart rate of 94. HEENT: Unremarkable. NECK: Supple. LUNGS: Have decreased breath sounds. HEART: Normal S1 and S2. ABDOMEN: Soft, nontender. No organomegaly, no rebound, no guarding, no masses. LABORATORY DATA: Reveals a white count of 0.9, hemoglobin of 10, platelets of 156. Coagulation is noted. Chemistry reveals the BUN of 10, creatinine of 0.7. Urinalysis is noted. Microbiology reveals the blood cultures are negative. Urine cultures are negative and labs from 05/05/2018. ASSESSMENT AND PLAN: This is a 52-year-old male seen earlier today in [facility], bed 2, who has a history of end-stage acquired immunodeficiency syndrome, depression, alcohol abuse, tobacco use, squamous cell anal cancer status post chemotherapy, now presenting with systemic inflammatory response syndrome with radiation dermatitis. The patient on raltegravir or Isentress and Truvada now has neutropenic febrile fevers. We will treat with meropenem 1 g every 8 hours for neutropenic febrile patient at this point and vancomycin. We will repeat blood cultures, urine cultures, sputum cultures and pending repeat cultures, we will also follow up and we will see human immunodeficiency virus workup as far the patient's T cells. Also order a serum cryptococcal antigen. We will make further recommendations. Hany Cortes MD
[2018-05-07] MEDS: POLYETHYLENE GLYCOL 3350 17 GM/Dose PACKET PO SCH (15:45)
[2018-05-07] MEDS: Vancomycin 1gm in NS 250ml 1 GM/250 ML BAG IVPB SCH ×2 (15:47→23:18)
[2018-05-08 04:43] LABS: URINE BILIRUBIN NEGATIVE (NEGATIVE); URINE BLOOD NEGATIVE (NEGATIVE); URINE GLUCOSE (UA) NEGATIVE (NEGATIVE); URINE LEUKOCYTE ESTERASE NEGATIVE Leu/uL (NEGATIVE); URINE PROTEIN NEGATIVE mg/dL (<30 mg/dL); URINE UROBILINOGEN 0.2 E.U./dL (<1 E.U./dL)
[2018-05-08 04:57] LABS: URINE APPEARANCE CLEAR (CLEAR); URINE COLOR YELLOW (YELLOW)
[2018-05-08] MEDS: Meropenem IV 1 gm in NS 1 GM/50 ML BAG IVPB SCH ×3 (05:48→22:21)
[2018-05-08] MEDS: Pantoprazole 40 mg EC Tab PO SCH (05:48)
[2018-05-08 06:45] LABS: EOS % 1.5 % (1.5-5.0); LYMPH # 0.1 (1.2-3.4); MEAN CELL VOLUME 85.9 fl (80.0-105.0); MEAN CORPUSCULAR HEMOGLOBIN 28.2 pg (25.0-35.0); MEAN CORPUSCULAR HGB CONC 32.8 g/dl (31.0-37.0); MEAN PLATELET VOLUME 9.9 fl (7.0-11.0); MONO # 0.2 (0.1-0.6); MONO % 27.7 % (1.0-6.0); RBC 3.55 10^6/uL (3.5-6.1); RED CELL DISTRIBUTION WIDTH 15.3 % (11.5-14.5)
[2018-05-08 06:58] LABS: WHITE BLOOD COUNT 0.7 10^3/uL (4.5-11.0)
[2018-05-08 07:06] LABS: ALB/GLOB RATIO 0.9 (1.1-1.8); ALBUMIN 3.2 g/dL (3.0-4.8); ALT/SGPT 103 U/L (7-56); AST/SGOT 70 U/L (17-59); BLOOD UREA NITROGEN 7 mg/dL (7-21); CALCIUM 8.8 mg/dL (8.4-10.5); GFR NON-AFRICAN AMERICAN > 60
[2018-05-08] MEDS ORDERED: Potassium Chloride 20 mEq ER Tab PO STA (07:09)
[2018-05-08] MEDS ORDERED: Potassium Chloride 40 mEq/30 ml LIQ UD PO ONE (09:02)
[2018-05-08] MEDS: Enoxaparin 40 mg Syringe SC SCH (09:55)
[2018-05-08] MEDS: Emtricitabine-Tenofovir 200 mg-300 mg Tab PO SCH (09:56)
[2018-05-08] MEDS: Benzocaine/Menthol (Cepacol) Lozenge MT PRN ×2 (09:56→17:16)
[2018-05-08] MEDS: Atovaquone 750 mg/5 ml Susp UD PO SCH ×2 (09:56→17:16)
[2018-05-08] MEDS: Hydrocortisone 2.5% Rectal Cream(30 gm) PR SCH ×2 (09:59→17:15)
[2018-05-08] MEDS: Calamine-Zinc Oxide Lotion (120 ml) TOP SCH ×2 (09:59→17:15)
[2018-05-08] MEDS ORDERED: Tmp-Smz 800 mg-160 mg DS Tab PO SCH (10:00)
[2018-05-08] MEDS: Vancomycin 1gm in NS 250ml 1 GM/250 ML BAG IVPB SCH ×2 (10:59→22:23)
--- NOTE | 2018-05-08 13:32 | CP.PCM.PN ---
<Kendra Paez - Last Filed: 05/08/18 13:28> Subjective - Date & Time of Evaluation Date of Evaluation: 05/08/18 Time of Evaluation: 13:28 - Subjective Subjective: INTERNAL MEDICINE PROGRESS NOTE FOR DR. ELDRIDGE Pt seen and examined at bedside this am. Pt continues to report pain in rectal area, and some scant bleeding from the region. He also continue to report mucosal irritation. Otherwise 12 point ROS is negative. Objective - Vital Signs/Intake and Output Vital Signs (last 24 hours): Temp Pulse Resp BP Pulse Ox 98.2 F 76 20 139/92 H 98 05/08/18 08:34 05/08/18 08:34 05/08/18 08:34 05/08/18 08:34 05/08/18 08:34 Intake and Output: 05/08/18 05/08/18 06:59 18:59 Intake Total 240 Output Total 300 Balance -60 - Medications Medications: Current Medications Acetaminophen (Tylenol 325mg Tab) 650 mg PO Q4H PRN PRN Reason: Fever >100.4 F Last Admin: 05/07/18 08:28 Dose: 650 mg Atovaquone (Mepron) 750 mg PO BID [facility]; Protocol Stop: 05/15/18 18:01 Last Admin: 05/08/18 09:56 Dose: 750 mg Azithromycin (Zithromax) 1,200 mg PO QWK [facility]; Protocol Benzocaine/Menthol (Cepacol Sore Throat) 1 suellen MT Q2H PRN PRN Reason: Sore Throat Last Admin: 05/08/18 09:56 Dose: 1 suellen Calamine (Calamine Lotion) 0 ml TOP BID [facility] Last Admin: 05/08/18 09:59 Dose: 1 ml Al Hydrox/Mg Hydrox/Simethicone 30 ml/Diphenhydramine HCl 75 mg/Lidocaine 30 ml 0 ml PO Q2H PRN PRN Reason: Mouth/Throat Pain Last Admin: 05/06/18 17:25 Dose: 1 soln Docusate Sodium (Colace) 100 mg PO DAILY [facility] Last Admin: 05/07/18 10:51 Dose: 100 mg Emtricitabine/Tenofovir (Truvada 200 Mg-300 Mg) 1 tab PO DAILY [facility]; Protocol Last Admin: 05/08/18 09:56 Dose: 1 tab Enoxaparin Sodium (Lovenox) 40 mg SC DAILY [facility]; Protocol Last Admin: 05/08/18 09:55 Dose: 40 mg Hydrocortisone (Anusol-Hc) 0 gm [place] BID [facility] Last Admin: 05/08/18 09:59 Dose: 1 applic Meropenem (Merrem Iv 1 Gm Premix) 1 gm in 50 mls @ 100 mls/hr IVPB Q8 [facility]; Protocol Last Admin: 05/08/18 05:48 Dose: 100 mls/hr Vancomycin HCl (Vancomycin 1gm) 1 gm in 250 mls @ 167 mls/hr IVPB Q12H [facility]; Protocol Stop: 05/13/18 11:16 Last Admin: 05/08/18 10:59 Dose: 167 mls/hr Pantoprazole Sodium (Protonix Ec Tab) 40 mg PO 0600 [facility] Last Admin: 05/08/18 05:48 Dose: 40 mg Polyethylene Glycol (Miralax) 17 gm PO DAILY [facility] Last Admin: 05/07/18 15:45 Dose: Not Given - Labs Labs: 05/08/18 06:20 05/08/18 06:20 PT 11.1 SECONDS (9.4-12.5) 05/05/18 12:30 INR 1.00 05/05/18 12:30 APTT 29.1 Seconds (26.9-38.3) 05/05/18 12:30 - Constitutional Appears: Non-toxic, Cachectic, Chronically Ill - Head Exam Head Exam: NORMOCEPHALIC - Eye Exam Eye Exam: EOMI, Normal appearance - Neck Exam Neck Exam: Normal Inspection - Respiratory Exam Respiratory Exam: NORMAL BREATHING PATTERN - Cardiovascular Exam Cardiovascular Exam: REGULAR RHYTHM, +S1, +S2 - GI/Abdominal Exam GI & Abdominal Exam: Soft, Tenderness - Rectal Exam Rectal Exam: Hemorrhoids Additional comments: rectal fissure - Extremities Exam Extremities Exam: Normal Inspection. absent: Calf Tenderness - Back Exam Back Exam: NORMAL INSPECTION - Neurological Exam Neurological Exam: Alert, Awake, Oriented x3 - Psychiatric Exam Psychiatric exam: Normal Affect, Normal Mood - Skin Skin Exam: Dry, Intact, Warm Assessment and Plan - Assessment and Plan (Free Text) Assessment: 52 year old male with a PMH of AIDS with last know CD4 <20, anal carcinoma s/p chemoradiation to rectal presented with perirectal pain Plan: Severe neutropenia ANC: 330 today. Severe neutropenia, likely 2/2 to combination of AIDS and marrow suppression from chemo agents Administer filgrastim one time dose today per Heme-onc recs. f/u ANC continue on neutropenic precautions tylenol prn for neutropenic fevers Per heme-onc, pt stable for discharge with close outpatient followup AIDS Last known CD4 is <20 continue azithromycin 1200mg qwk for MAC ppx Continue combination-antiretroviral therapy with truvada(emtricitabine /tenofovir) and raltegravir Continue atovaquone (TMP-SMX contraindicated d/t neutropenia) for PJP, vanc, meropenem f/u cryptococcous Ag prelim cultures negative ID recs appreciated Rectal pain Likely 2/2 to post radiation skin changes Continue laxatives. C. Diff stool Ag/toxin:negative 05/05 CT A/P showed no fluid collection near rectum, only inflammation Cont anusol Start calamine lotion Dry cough Given AIDS status with very low CD4 count will f/u ID recs Continue cepacol Tongue lesions Possible mucositis 2/2 chemo vs AIDS related, although does not appear infectious continue magic mouth wash Ppx: lovenox/protonix Case seen, examined and discussed with attending physician Dr. Marlo Paez PGY1 <Felisha Eldridge R - Last Filed: 05/08/18 14:27> Objective - Vital Signs/Intake and Output Vital Signs (last 24 hours): Temp Pulse Resp BP Pulse Ox 98.2 F 76 20 139/92 H 98 05/08/18 08:34 05/08/18 08:34 05/08/18 08:34 05/08/18 08:34 05/08/18 08:34 Intake and Output: 05/08/18 05/08/18 06:59 18:59 Intake Total 240 Output Total 300 Balance -60 - Medications Medications: Current Medications Acetaminophen (Tylenol 325mg Tab) 650 mg PO Q4H PRN PRN Reason: Fever >100.4 F Last Admin: 05/07/18 08:28 Dose: 650 mg Atovaquone (Mepron) 750 mg PO BID [facility]; Protocol Stop: 05/15/18 18:01 Last Admin: 05/08/18 09:56 Dose: 750 mg Azithromycin (Zithromax) 1,200 mg PO QWK [facility]; Protocol Benzocaine/Menthol (Cepacol Sore Throat) 1 suellen MT Q2H PRN PRN Reason: Sore Throat Last Admin: 05/08/18 09:56 Dose: 1 suellen Calamine (Calamine Lotion) 0 ml TOP BID [facility] Last Admin: 05/08/18 09:59 Dose: 1 ml Al Hydrox/Mg Hydrox/Simethicone 30 ml/Diphenhydramine HCl 75 mg/Lidocaine 30 ml 0 ml PO Q2H PRN PRN Reason: Mouth/Throat Pain Last Admin: 05/06/18 17:25 Dose: 1 soln Docusate Sodium (Colace) 100 mg PO DAILY [facility] Last Admin: 05/07/18 10:51 Dose: 100 mg Emtricitabine/Tenofovir (Truvada 200 Mg-300 Mg) 1 tab PO DAILY [facility]; Protocol Last Admin: 05/08/18 09:56 Dose: 1 tab Enoxaparin Sodium (Lovenox) 40 mg SC DAILY [facility]; Protocol Last Admin: 05/08/18 09:55 Dose: 40 mg Hydrocortisone (Anusol-Hc) 0 gm NV BID [facility] Last Admin: 05/08/18 09:59 Dose: 1 applic Meropenem (Merrem Iv 1 Gm Premix) 1 gm in 50 mls @ 100 mls/hr IVPB Q8 [facility]; Protocol Last Admin: 05/08/18 14:13 Dose: 100 mls/hr Vancomycin HCl (Vancomycin 1gm) 1 gm in 250 mls @ 167 mls/hr IVPB Q12H [facility]; Protocol Stop: 05/13/18 11:16 Last Admin: 05/08/18 10:59 Dose: 167 mls/hr Pantoprazole Sodium (Protonix Ec Tab) 40 mg PO 0600 [facility] Last Admin: 05/08/18 05:48 Dose: 40 mg Polyethylene Glycol (Miralax) 17 gm PO DAILY [facility] Last Admin: 05/07/18 15:45 Dose: Not Given Raltegravir (Isentress) 400 mg PO BID [facility]; Protocol - Labs Labs: 05/08/18 06:20 05/08/18 06:20 PT 11.1 SECONDS (9.4-12.5) 05/05/18 12:30 INR 1.00 05/05/18 12:30 APTT 29.1 Seconds (26.9-38.3) 05/05/18 12:30 Attending/Attestation - Attestation I have personally seen and examined this patient.: Yes I have fully participated in the care of the patient.: Yes I have reviewed all pertinent clinical information, including history, physical exam and plan: Yes Notes (Text): Patient seen and examined by me with resident at 10:25AM on 05/08/18. Case including HPI, physical exam, and assessment and plan discussed with resident. Agree with above with following additions/corrections. Patient is a 52 year old male with past medical history significant for AIDS and anal carcinoma that presented to the emergency room with perirectal pain and burning. Patient states he is not feeling well. Complains of pain in his rectum. States he feels it is bad secondary to having diarrhea. Patient states he noticed some blood from his rectal area. Patient also with a little "discomfort" ih his mouth. No chest pain or palpitations. No headaches or dizziness. No fevers or chills. No nausea, vomiting, or abdominal pain. No dysuria. Physical exam: General: Awake and alert sitting up in bed in no acute distress HEENT: Normocephalic, atraumatic. Extraocular muscles intact, pupils equal and reactive, no scleral icterus. Oropharynx is pink and moist. No pharyngeal erythema or exudate appreciated. Neck is supple. Cardiovascular: Regular rhythm. Normal S1 and S2. No murmurs, rubs, or gallops appreciated Pulmonary: Normal respiratory effort. Decreased breath sounds. No rhonchi, rales, or wheezing appreciated. Gastrointestinal: Soft, nondistended. Nontender. Positive bowel sounds all 4 quadrants. No guarding. Musculoskeletal: Moves all extremities. No calf tenderness. Trace lower extremity edema appreciated. : Rectal area with irritation, small open fissures with a scant amount of bleeding. Central nervous system: AAOx3, CN 2-12 grossly intact. Dermatologic: Skin warm and dry. Assessment and plan: Patient is a 52 year old male with past medical history significant for AIDs and anal carcinoma that presented to the emergency room with perirectal pain and burning. 1. Neutropenic fever. ID following, recommendations appreciated. Blood cultures and urine cultures with no growth. C-diff negative. Pending sputum culture, s tool culture, and serum cryptococcus. Continue Tylenol as needed. ID following, recommendations appreciated. Patient febrile yesterday. Continue vancomycin and Merrem. Hem/onc following, recommendations appreciated. Patient to get one dose of granix today per hem/onc Dr. Ren. Continue Neutropenic precautions. 2. Cellulitis vs radiation dermatitis. More likely radiation dermatitis. Continue with pain control. CT abd/pelvis per radiologist showed no evidence of perianal abscess formation, moderate diffuse thickening of the distal rectum and anal canal noted likely related to the patients known history of squamous cell carcinoma of the anal canal, moderate circumferential urinary bladder wall thickening. 3. Diarrhea. Likely secondary to chemo and radiation. C-diff negative. 4. Rectal pain. Continue anusol-HC per rectum BID. Continue with calamine lotion as needed. Will give bacitracian for open fissures. 5. Transaminitis. May be secondary to medications. Downtrending. Continue to monitor. 6. Oral Mucositis. Continue with Magic mouthwash. 7. Squamous cell carcinoma of the anal canal. Hem/onc following, recommendations appreciated. S/P chemo. Now on radiation. 8. AIDS. Continue Isentress and Truvada. Continue Zithromax 1200mg weekly. Continue Mepron 750mg PO BID. 9. Constipation. Patient having diarrhea. Miralax and colace have been on hold. 10. Homelessness. Social work following. 11. GI/DVT prophylaxis. Protonix/Lovenox 12. Patient is a full code. Case was discussed in detail with the patient regarding current diagnosis and treatment plan. All questions answered.
--- NOTE | 2018-05-08 13:43 | CP.PCM.PN ---
Subjective - Date & Time of Evaluation Date of Evaluation: 05/08/18 Time of Evaluation: 10:30 - Subjective Subjective: Patient still feels weak and still has anal pain, no fevers this morning, still with poor appetite. Objective - Vital Signs/Intake and Output Vital Signs (last 24 hours): Temp Pulse Resp BP Pulse Ox 98.2 F 76 20 139/92 H 98 05/08/18 08:34 05/08/18 08:34 05/08/18 08:34 05/08/18 08:34 05/08/18 08:34 Intake and Output: 05/08/18 05/08/18 06:59 18:59 Intake Total 240 Output Total 300 Balance -60 - Medications Medications: Current Medications Acetaminophen (Tylenol 325mg Tab) 650 mg PO Q4H PRN PRN Reason: Fever >100.4 F Last Admin: 05/07/18 08:28 Dose: 650 mg Atovaquone (Mepron) 750 mg PO BID [facility]; Protocol Stop: 05/15/18 18:01 Last Admin: 05/08/18 09:56 Dose: 750 mg Azithromycin (Zithromax) 1,200 mg PO QWK [facility]; Protocol Benzocaine/Menthol (Cepacol Sore Throat) 1 suellen MT Q2H PRN PRN Reason: Sore Throat Last Admin: 05/08/18 09:56 Dose: 1 suellen Calamine (Calamine Lotion) 0 ml TOP BID [facility] Last Admin: 05/08/18 09:59 Dose: 1 ml Al Hydrox/Mg Hydrox/Simethicone 30 ml/Diphenhydramine HCl 75 mg/Lidocaine 30 ml 0 ml PO Q2H PRN PRN Reason: Mouth/Throat Pain Last Admin: 05/06/18 17:25 Dose: 1 soln Docusate Sodium (Colace) 100 mg PO DAILY [facility] Last Admin: 05/07/18 10:51 Dose: 100 mg Emtricitabine/Tenofovir (Truvada 200 Mg-300 Mg) 1 tab PO DAILY [facility]; Protocol Last Admin: 05/08/18 09:56 Dose: 1 tab Enoxaparin Sodium (Lovenox) 40 mg SC DAILY [facility]; Protocol Last Admin: 05/08/18 09:55 Dose: 40 mg Hydrocortisone (Anusol-Hc) 0 gm [place] BID [facility] Last Admin: 05/08/18 09:59 Dose: 1 applic Meropenem (Merrem Iv 1 Gm Premix) 1 gm in 50 mls @ 100 mls/hr IVPB Q8 [facility]; Protocol Last Admin: 05/08/18 05:48 Dose: 100 mls/hr Vancomycin HCl (Vancomycin 1gm) 1 gm in 250 mls @ 167 mls/hr IVPB Q12H [facility]; Protocol Stop: 05/13/18 11:16 Last Admin: 05/08/18 10:59 Dose: 167 mls/hr Pantoprazole Sodium (Protonix Ec Tab) 40 mg PO 0600 [facility] Last Admin: 05/08/18 05:48 Dose: 40 mg Polyethylene Glycol (Miralax) 17 gm PO DAILY [facility] Last Admin: 05/07/18 15:45 Dose: Not Given - Labs Labs: 05/08/18 06:20 05/08/18 06:20 PT 11.1 SECONDS (9.4-12.5) 05/05/18 12:30 INR 1.00 05/05/18 12:30 APTT 29.1 Seconds (26.9-38.3) 05/05/18 12:30 - Constitutional Appears: Cachectic, Chronically Ill - Head Exam Head Exam: NORMAL INSPECTION - Respiratory Exam Respiratory Exam: Decreased Breath Sounds - Cardiovascular Exam Cardiovascular Exam: +S1, +S2 - GI/Abdominal Exam GI & Abdominal Exam: Soft. absent: Tenderness Assessment and Plan - Assessment and Plan (Free Text) Plan: Assessment Febrile neutropenia in this patient with squamous cell anal carcinoma on chemotherapy HIV/AIDS Plan continue Vancomycin and Merrem and follow up final blood and urine cx results will monitor WBC count follow up serum Crypt Ag continue cART, DIPAK and PJP prophylaxis
[2018-05-08] MEDS: Sodium Chloride 0.9% 1,000 ML IV SCH (18:06)
--- NOTE | 2018-05-08 21:15 | CP.PCM.CON ---
History of Present Illness - History of Present Illness History of Present Illness: 52 year old homeless male with a history of AIDS, anal cancer currently undergoing definitive chemoradiation, admitted with perneal pain. He recently completed inpatient infusional chemotherapy. He has been receiving daily radiation treatments and notes to burning pain involving the groin. He does admit to fevers and chills. Past medical history: anal cancer Past surgical history: Denies Family history: Denies hematologic and oncologic problems Social history: +alcohol Allergies: NKA Review of systems: All remaining review of systems including HEENT, cardiovascular, respiratory, gastrointestinal, genitourinary, musculoskeletal, dermatologic, neurologic, and psychiatric are negative unless mentioned in the HPI. Past Patient History - Infectious Disease Hx of Infectious Diseases: None - Past Medical History & Family History Past Medical History?: Yes - Past Social History Smoking Status: Former Smoker - CARDIAC Hx Cardiac Disorders: No - PULMONARY Hx Respiratory Disorders: No - NEUROLOGICAL Hx Neurological Disorder: No - HEENT Hx HEENT Problems: No - RENAL Hx Chronic Kidney Disease: No - ENDOCRINE/METABOLIC Hx Endocrine Disorders: No - HEMATOLOGICAL/ONCOLOGICAL Hx Blood Disorders: Yes Hx Cancer: Yes (Anal) Hx Human Immunodeficiency Virus (HIV): Yes - INTEGUMENTARY Hx Dermatological Problems: Yes Hx Squamous Cell: Yes (Anal Ca) - MUSCULOSKELETAL/RHEUMATOLOGICAL Hx Musculoskeletal Disorders: Yes Hx Falls: No - GASTROINTESTINAL Hx Gastrointestinal Disorders: No - GENITOURINARY/GYNECOLOGICAL Hx Genitourinary Disorders: No - PSYCHIATRIC Hx Psychophysiologic Disorder: Yes Hx Depression: Yes Hx Substance Use: Yes - SURGICAL HISTORY Hx Surgeries: Yes Other/Comment: RIGHT CHEEK, LEFT BARROS SX - ANESTHESIA Hx Anesthesia: Yes Hx Anesthesia Reactions: No Meds Allergies/Adverse Reactions: Allergies Allergy/AdvReac Type Severity Reaction Status Date / Time No Known Allergies Allergy Verified 05/05/18 11:26 - Medications Medications: Current Medications Acetaminophen (Tylenol 325mg Tab) 650 mg PO Q4H PRN PRN Reason: Fever >100.4 F Last Admin: 05/08/18 17:16 Dose: 650 mg Atovaquone (Mepron) 750 mg PO BID [facility]; Protocol Stop: 05/15/18 18:01 Last Admin: 05/08/18 17:16 Dose: 750 mg Azithromycin (Zithromax) 1,200 mg PO QWK [facility]; Protocol Benzocaine/Menthol (Cepacol Sore Throat) 1 suellen MT Q2H PRN PRN Reason: Sore Throat Last Admin: 05/08/18 17:16 Dose: 1 suellen Calamine (Calamine Lotion) 0 ml TOP BID [facility] Last Admin: 05/08/18 17:15 Dose: 1 ml Al Hydrox/Mg Hydrox/Simethicone 30 ml/Diphenhydramine HCl 75 mg/Lidocaine 30 ml 0 ml PO Q2H PRN PRN Reason: Mouth/Throat Pain Last Admin: 05/06/18 17:25 Dose: 1 soln Docusate Sodium (Colace) 100 mg PO DAILY [facility] Last Admin: 05/07/18 10:51 Dose: 100 mg Emtricitabine/Tenofovir (Truvada 200 Mg-300 Mg) 1 tab PO DAILY [facility]; Protocol Last Admin: 05/08/18 09:56 Dose: 1 tab Enoxaparin Sodium (Lovenox) 40 mg SC DAILY [facility]; Protocol Last Admin: 05/08/18 09:55 Dose: 40 mg Hydrocortisone (Anusol-Hc) 0 gm [place] BID [facility] Last Admin: 05/08/18 17:15 Dose: 1 applic Meropenem (Merrem Iv 1 Gm Premix) 1 gm in 50 mls @ 100 mls/hr IVPB Q8 [facility]; Protocol Last Admin: 05/08/18 14:13 Dose: 100 mls/hr Vancomycin HCl (Vancomycin 1gm) 1 gm in 250 mls @ 167 mls/hr IVPB Q12H [facility]; Protocol Stop: 05/13/18 11:16 Last Admin: 05/08/18 10:59 Dose: 167 mls/hr Sodium Chloride (Sodium Chloride 0.9%) 1,000 mls @ 75 mls/hr IV .[id number] [facility] Last Admin: 05/08/18 18:06 Dose: 75 mls/hr Pantoprazole Sodium (Protonix Ec Tab) 40 mg PO 0600 [facility] Last Admin: 05/08/18 05:48 Dose: 40 mg Polyethylene Glycol (Miralax) 17 gm PO DAILY [facility] Last Admin: 05/07/18 15:45 Dose: Not Given Raltegravir (Isentress) 400 mg PO BID [facility]; Protocol Last Admin: 05/08/18 17:16 Dose: 400 mg Results - Vital Signs Recent Vital Signs: Last Vital Signs Temp 98.7 F 05/08/18 18:16 Pulse 87 05/08/18 16:19 Resp 20 05/08/18 16:19 BP 104/73 05/08/18 16:19 Pulse Ox 99 05/08/18 16:19 - Labs Result Diagrams: 05/08/18 06:20 05/08/18 06:20 Labs: Laboratory Results - last 24 hr 05/08/18 05/08/18 05/08/18 04:30 06:20 06:20 WBC 0.7 L* D RBC 3.55 Hgb 10.0 L Hct 30.5 L MCV 85.9 MCH 28.2 MCHC 32.8 RDW 15.3 H Plt Count 139 MPV 9.9 Neut % (Auto) 50.8 Lymph % (Auto) 20.0 L Jackson % (Auto) 27.7 H Eos % (Auto) 1.5 Baso % (Auto) 0.0 Lymph # (Auto) 0.1 L Jackson # (Auto) 0.2 Eos # (Auto) 0.0 Baso # (Auto) 0.00 Absolute Neuts (auto) 0.33 L Sodium 136 Potassium 3.5 L Chloride 106 Carbon Dioxide 27 Anion Gap 7 L BUN 7 Creatinine 0.6 L Est GFR ( Amer) > 60 Est GFR (Non-Af Amer) > 60 Random Glucose 91 Calcium 8.8 Total Bilirubin 0.5 AST 70 H ALT 103 H Alkaline Phosphatase 80 Total Protein 6.7 Albumin 3.2 Globulin 3.4 Albumin/Globulin Ratio 0.9 L Urine Color Yellow Urine Appearance Clear Urine pH 6.0 Ur Specific [place] >= 1.030 Urine Protein Negative Urine Glucose (UA) Negative Urine Ketones Negative Urine Blood Negative Urine Nitrate Negative Urine Bilirubin Negative Urine Urobilinogen 0.2 Ur Leukocyte Esterase Negative Assessment & Plan (1) Neutropenia Assessment and Plan: recent chemotherapy and radiation recent alcohol AIDS growth factor support if ANC < 500 neutropenic precations Status: Acute (2) Anemia Assessment and Plan: chemoradiation recent alcohol AIDS transfusion support PRN Status: Acute (3) Anal cancer Assessment and Plan: on definitive chemoradiation Thank you for this interesting consult. Status: Acute
--- NOTE | 2018-05-08 21:19 | CP.PCM.PN ---
Subjective - Date & Time of Evaluation Date of Evaluation: 05/08/18 Time of Evaluation: 20:00 - Subjective Subjective: No complaints. Objective - Vital Signs/Intake and Output Vital Signs (last 24 hours): Temp Pulse Resp BP Pulse Ox 98.7 F 87 20 104/73 99 05/08/18 18:16 05/08/18 16:19 05/08/18 16:19 05/08/18 16:19 05/08/18 16:19 - Medications Medications: Current Medications Acetaminophen (Tylenol 325mg Tab) 650 mg PO Q4H PRN PRN Reason: Fever >100.4 F Last Admin: 05/08/18 17:16 Dose: 650 mg Atovaquone (Mepron) 750 mg PO BID [facility]; Protocol Stop: 05/15/18 18:01 Last Admin: 05/08/18 17:16 Dose: 750 mg Azithromycin (Zithromax) 1,200 mg PO QWK [facility]; Protocol Benzocaine/Menthol (Cepacol Sore Throat) 1 suellen MT Q2H PRN PRN Reason: Sore Throat Last Admin: 05/08/18 17:16 Dose: 1 suellen Calamine (Calamine Lotion) 0 ml TOP BID [facility] Last Admin: 05/08/18 17:15 Dose: 1 ml Al Hydrox/Mg Hydrox/Simethicone 30 ml/Diphenhydramine HCl 75 mg/Lidocaine 30 ml 0 ml PO Q2H PRN PRN Reason: Mouth/Throat Pain Last Admin: 05/06/18 17:25 Dose: 1 soln Docusate Sodium (Colace) 100 mg PO DAILY [facility] Last Admin: 05/07/18 10:51 Dose: 100 mg Emtricitabine/Tenofovir (Truvada 200 Mg-300 Mg) 1 tab PO DAILY [facility]; Protocol Last Admin: 05/08/18 09:56 Dose: 1 tab Enoxaparin Sodium (Lovenox) 40 mg SC DAILY [facility]; Protocol Last Admin: 05/08/18 09:55 Dose: 40 mg Hydrocortisone (Anusol-Hc) 0 gm [place] BID [facility] Last Admin: 05/08/18 17:15 Dose: 1 applic Meropenem (Merrem Iv 1 Gm Premix) 1 gm in 50 mls @ 100 mls/hr IVPB Q8 [facility]; Protocol Last Admin: 01/28/19 14:13 Dose: 100 mls/hr Vancomycin HCl (Vancomycin 1gm) 1 gm in 250 mls @ 167 mls/hr IVPB Q12H [facility]; Protocol Stop: 05/13/18 11:16 Last Admin: 05/08/18 10:59 Dose: 167 mls/hr Sodium Chloride (Sodium Chloride 0.9%) 1,000 mls @ 75 mls/hr IV .[id number] [facility] Last Admin: 05/08/18 18:06 Dose: 75 mls/hr Pantoprazole Sodium (Protonix Ec Tab) 40 mg PO 0600 [facility] Last Admin: 05/08/18 05:48 Dose: 40 mg Polyethylene Glycol (Miralax) 17 gm PO DAILY [facility] Last Admin: 05/07/18 15:45 Dose: Not Given Raltegravir (Isentress) 400 mg PO BID [facility]; Protocol Last Admin: 05/08/18 17:16 Dose: 400 mg - Labs Labs: 05/08/18 06:20 05/08/18 06:20 PT 11.1 SECONDS (9.4-12.5) 05/05/18 12:30 INR 1.00 05/05/18 12:30 APTT 29.1 Seconds (26.9-38.3) 05/05/18 12:30 - Head Exam Head Exam: ATRAUMATIC - Eye Exam Eye Exam: Normal appearance - ENT Exam ENT Exam: Mucous Membranes Dry - Respiratory Exam Respiratory Exam: NORMAL BREATHING PATTERN - Cardiovascular Exam Cardiovascular Exam: +S1, +S2 - GI/Abdominal Exam GI & Abdominal Exam: Normal Bowel Sounds Assessment and Plan (1) Neutropenia Assessment & Plan: Granix dosed today for ANC < 500 neutropenic precautions Status: Acute (2) Anemia Assessment & Plan: H/H stable Status: Acute (3) Anal cancer Assessment & Plan: on definitive chemoradiation Status: Acute
[2018-05-09] MEDS: Pantoprazole 40 mg EC Tab PO SCH (05:30)
[2018-05-09] MEDS: Meropenem IV 1 gm in NS 1 GM/50 ML BAG IVPB SCH ×3 (05:30→21:21)
[2018-05-09 07:17] LABS: HEMOGLOBIN 9.9 g/dL (14.0-18.0); LYMPH # 0.2 (1.2-3.4); MONO # 0.3 (0.1-0.6)
[2018-05-09 07:24] LABS: ALBUMIN 3.2 g/dL (3.0-4.8); ALT/SGPT 107 U/L (7-56); AST/SGOT 94 U/L (17-59); BLOOD UREA NITROGEN 10 mg/dL (7-21); CALCIUM 8.8 mg/dL (8.4-10.5); GFR NON-AFRICAN AMERICAN > 60
[2018-05-09 07:35] LABS: EOS % 0.6 % (1.5-5.0); LYMPH % 10.1 % (22.0-35.0); MEAN CELL VOLUME 86.8 fl (80.0-105.0); MEAN CORPUSCULAR HGB CONC 33.4 g/dl (31.0-37.0); MEAN PLATELET VOLUME 9.6 fl (7.0-11.0); MONO % 15.1 % (1.0-6.0); PLATELET COUNT 107 10^3/uL (120.0-450.0); RBC 3.41 10^6/uL (3.5-6.1); RED CELL DISTRIBUTION WIDTH 15.6 % (11.5-14.5)
[2018-05-09 07:38] LABS: WHITE BLOOD COUNT 1.8 10^3/uL (4.5-11.0)
[2018-05-09 08:35] LABS: BAND 5 % (0-2); EOSINOPHIL 2 % (0.0-3.0); LYMPHOCYTE 9 % (22.0-35.0); MONOCYTE 10 % (1.0-6.0); NEUTROPHIL 74 % (50.0-70.0)
[2018-05-09 08:36] LABS: PLATELET ESTIMATE LOW (NORMAL)
[2018-05-09] MEDS: Emtricitabine-Tenofovir 200 mg-300 mg Tab PO SCH (10:14)
[2018-05-09] MEDS: Enoxaparin 40 mg Syringe SC SCH (10:15)
[2018-05-09] MEDS: Atovaquone 750 mg/5 ml Susp UD PO SCH ×2 (10:15→17:28)
[2018-05-09] MEDS: Vancomycin 1gm in NS 250ml 1 GM/250 ML BAG IVPB SCH ×2 (10:16→22:26)
[2018-05-09] MEDS ORDERED: Bacitracin 500 Units/gm Oint Foilpak UD TOP ONE (10:25)
[2018-05-09] MEDS: Calamine-Zinc Oxide Lotion (120 ml) TOP SCH ×2 (10:41→17:33)
[2018-05-09] MEDS: Sodium Chloride 0.9% 1,000 ML IV SCH (10:46)
[2018-05-09] MEDS: Hydrocortisone 2.5% Rectal Cream(30 gm) PR SCH ×2 (10:49→17:33)
--- NOTE | 2018-05-09 10:53 | CP.PCM.PN ---
Subjective - Date & Time of Evaluation Date of Evaluation: 05/09/18 Time of Evaluation: 08:55 - Subjective Subjective: Patient is still having perianal pain, no fevers, appetite is ok, no diarrhea currently. Objective - Vital Signs/Intake and Output Vital Signs (last 24 hours): Temp Pulse Resp BP Pulse Ox 98.2 F 76 20 139/92 H 98 05/08/18 08:34 05/08/18 08:34 05/08/18 08:34 05/08/18 08:34 05/08/18 08:34 Intake and Output: 05/08/18 05/08/18 06:59 18:59 Intake Total 240 Output Total 300 Balance -60 - Medications Medications: Current Medications Acetaminophen (Tylenol 325mg Tab) 650 mg PO Q4H PRN PRN Reason: Fever >100.4 F Last Admin: 05/07/18 08:28 Dose: 650 mg Atovaquone (Mepron) 750 mg PO BID [facility]; Protocol Stop: 05/15/18 18:01 Last Admin: 05/08/18 09:56 Dose: 750 mg Azithromycin (Zithromax) 1,200 mg PO QWK [facility]; Protocol Benzocaine/Menthol (Cepacol Sore Throat) 1 suellen MT Q2H PRN PRN Reason: Sore Throat Last Admin: 05/08/18 09:56 Dose: 1 suellen Calamine (Calamine Lotion) 0 ml TOP BID [facility] Last Admin: 05/08/18 09:59 Dose: 1 ml Al Hydrox/Mg Hydrox/Simethicone 30 ml/Diphenhydramine HCl 75 mg/Lidocaine 30 ml 0 ml PO Q2H PRN PRN Reason: Mouth/Throat Pain Last Admin: 05/06/18 17:25 Dose: 1 soln Docusate Sodium (Colace) 100 mg PO DAILY [facility] Last Admin: 05/07/18 10:51 Dose: 100 mg Emtricitabine/Tenofovir (Truvada 200 Mg-300 Mg) 1 tab PO DAILY [facility]; Protocol Last Admin: 05/08/18 09:56 Dose: 1 tab Enoxaparin Sodium (Lovenox) 40 mg SC DAILY [facility]; Protocol Last Admin: 05/08/18 09:55 Dose: 40 mg Hydrocortisone (Anusol-Hc) 0 gm AL BID [facility] Last Admin: 05/08/18 09:59 Dose: 1 applic Meropenem (Merrem Iv 1 Gm Premix) 1 gm in 50 mls @ 100 mls/hr IVPB Q8 [facility]; Protocol Last Admin: 05/08/18 05:48 Dose: 100 mls/hr Vancomycin HCl (Vancomycin 1gm) 1 gm in 250 mls @ 167 mls/hr IVPB Q12H [facility]; Protocol Stop: 05/13/18 11:16 Last Admin: 05/08/18 10:59 Dose: 167 mls/hr Pantoprazole Sodium (Protonix Ec Tab) 40 mg PO 0600 [facility] Last Admin: 05/08/18 05:48 Dose: 40 mg Polyethylene Glycol (Miralax) 17 gm PO DAILY [facility] Last Admin: 05/07/18 15:45 Dose: Not Given Raltegravir (Isentress) 400 mg PO BID [facility]; Protocol - Labs Labs: 05/08/18 06:20 05/08/18 06:20 PT 11.1 SECONDS (9.4-12.5) 05/05/18 12:30 INR 1.00 05/05/18 12:30 APTT 29.1 Seconds (26.9-38.3) 05/05/18 12:30 - Constitutional Appears: Cachectic, Chronically Ill - Head Exam Head Exam: NORMAL INSPECTION - Neck Exam Neck Exam: absent: Meningismus - Respiratory Exam Respiratory Exam: Decreased Breath Sounds Additional comments: right anterior chest wall port in place - Cardiovascular Exam Cardiovascular Exam: +S1, +S2 - GI/Abdominal Exam GI & Abdominal Exam: Soft. 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
--- NOTE | 2018-05-09 18:51 | CP.PCM.PN ---
<Kendra Paez - Last Filed: 05/09/18 18:44> Subjective - Date & Time of Evaluation Date of Evaluation: 05/09/18 Time of Evaluation: 12:00 - Subjective Subjective: INTERNAL MEDICINE PROGRESS NOTE FOR DR. MARLO Paez PGY1 Pt seen and examined at bedside this am. Pt reports continued pain in rectal area. He also reports several episodes of non-bloody diarrhea. He is tolerating his diet. 12 point ROS is otherwise negative Objective - Vital Signs/Intake and Output Vital Signs (last 24 hours): Temp Pulse Resp BP Pulse Ox 98.5 F 90 20 129/83 100 05/09/18 16:35 05/09/18 16:35 05/09/18 16:35 05/09/18 16:35 05/09/18 16:35 Intake and Output: 05/09/18 05/09/18 06:59 18:59 Intake Total 1730 860 Balance 1730 860 - Medications Medications: Current Medications Acetaminophen (Tylenol 325mg Tab) 650 mg PO Q4H PRN PRN Reason: Fever >100.4 F Last Admin: 05/08/18 17:16 Dose: 650 mg Atovaquone (Mepron) 750 mg PO BID [facility]; Protocol Stop: 05/15/18 18:01 Last Admin: 05/09/18 17:28 Dose: 750 mg Azithromycin (Zithromax) 1,200 mg PO QWK [facility]; Protocol Benzocaine/Menthol (Cepacol Sore Throat) 1 suellen MT Q2H PRN PRN Reason: Sore Throat Last Admin: 05/08/18 17:16 Dose: 1 suellen Calamine (Calamine Lotion) 0 ml TOP BID [facility] Last Admin: 05/09/18 17:33 Dose: 120 ml Al Hydrox/Mg Hydrox/Simethicone 30 ml/Diphenhydramine HCl 75 mg/Lidocaine 30 ml 0 ml PO Q2H PRN PRN Reason: Mouth/Throat Pain Last Admin: 05/06/18 17:25 Dose: 1 soln Emtricitabine/Tenofovir (Truvada 200 Mg-300 Mg) 1 tab PO DAILY [facility]; Protocol Last Admin: 05/09/18 10:14 Dose: 1 tab Enoxaparin Sodium (Lovenox) 40 mg SC DAILY [facility]; Protocol Last Admin: 05/09/18 10:15 Dose: 40 mg Hydrocortisone (Anusol-Hc) 0 gm SD BID [facility] Last Admin: 05/09/18 17:33 Dose: 1 applic Meropenem (Merrem Iv 1 Gm Premix) 1 gm in 50 mls @ 100 mls/hr IVPB Q8 [facility]; Prot ocol Last Admin: 05/09/18 13:50 Dose: 100 mls/hr Vancomycin HCl (Vancomycin 1gm) 1 gm in 250 mls @ 167 mls/hr IVPB Q12H [facility]; Protocol Stop: 05/13/18 11:16 Last Admin: 05/09/18 10:16 Dose: 167 mls/hr Sodium Chloride (Sodium Chloride 0.9%) 1,000 mls @ 75 mls/hr IV .[id number] [facility] Last Admin: 05/09/18 10:46 Dose: 75 mls/hr Loperamide HCl (Imodium) 2 mg PO QID PRN PRN Reason: Diarrhea Pantoprazole Sodium (Protonix Ec Tab) 40 mg PO 0600 [facility] Last Admin: 05/09/18 05:30 Dose: 40 mg Raltegravir (Isentress) 400 mg PO BID [facility]; Protocol Last Admin: 05/09/18 17:29 Dose: 400 mg - Labs Labs: 05/09/18 06:00 05/09/18 06:00 PT 11.1 SECONDS (9.4-12.5) 05/05/18 12:30 INR 1.00 05/05/18 12:30 APTT 29.1 Seconds (26.9-38.3) 05/05/18 12:30 - Additional Findings Additional findings: - Constitutional Appears: Non-toxic, Cachectic, Chronically Ill - Head Exam Head Exam: NORMOCEPHALIC - Eye Exam Eye Exam: EOMI, Normal appearance - Neck Exam Neck Exam: Normal Inspection - Respiratory Exam Respiratory Exam: NORMAL BREATHING PATTERN - Cardiovascular Exam Cardiovascular Exam: REGULAR RHYTHM, +S1, +S2 - GI/Abdominal Exam GI & Abdominal Exam: Soft, Tenderness - Rectal Exam Rectal Exam: Hemorrhoids Additional comments: rectal fissure - Extremities Exam Extremities Exam: Normal Inspection. absent: Calf Tenderness - Back Exam Back Exam: NORMAL INSPECTION - Neurological Exam Neurological Exam: Alert, Awake, Oriented x3 - Psychiatric Exam Psychiatric exam: Normal Affect, Normal Mood - Skin Skin Exam: Dry, Intact, Warm Assessment and Plan - Assessment and Plan (Free Text) Assessment: 52 year old male with a PMH of AIDS with last know CD4 <20, anal carcinoma s/p chemoradiation to rectal presented with perirectal pain Plan: Severe neutropenia s/p filgastrim administration, ANC increased to 1330 continue on neutropenic precautions tylenol prn for neutropenic fevers Per heme-onc, pt stable for discharge with close outpatient followup AIDS Last known CD4 is <20 continue azithromycin 1200mg qwk for MAC ppx Continue combination-antiretroviral therapy with truvada(emtricitabine/tenofovir) and raltegravir Continue atovaquone (TMP-SMX contraindicated d/t neutropenia) for PJP, vanc, meropenem cryptococcous Ag is negative prelim cultures negative ID recs appreciated Rectal pain start bacitracin in rectal area Likely 2/2 to post radiation skin changes hold laxatives. C. Diff stool Ag/toxin:negative 05/05 CT A/P showed no fluid collection near rectum, only inflammation Cont anusol Start calamine lotion Diarrhea hold laxatives administer loperamide most recent c.diff is negative Dry cough Given AIDS status with very low CD4 count will f/u ID recs Continue cepacol Tongue lesions Possible mucositis 2/2 chemo vs AIDS related, although does not appear infectious continue magic mouth wash Ppx: lovenox/protonix Case seen, examined and discussed with attending physician Dr. Marlo Paez PGY1 <Felisha Sellers R - Last Filed: 05/10/18 07:46> Objective - Vital Signs/Intake and Output Vital Signs (last 24 hours): Temp Pulse Resp BP Pulse Ox 98.9 F 74 20 117/80 99 05/10/18 06:00 05/10/18 06:00 05/10/18 06:00 05/10/18 06:00 05/10/18 06:00 Intake and Output: 05/10/18 05/10/18 06:59 18:59 Intake Total 240 Balance 240 - Medications Medications: Current Medications Acetaminophen (Tylenol 325mg Tab) 650 mg PO Q4H PRN PRN Reason: Fever >100.4 F Last Admin: 05/08/18 17:16 Dose: 650 mg Atovaquone (Mepron) 750 mg PO BID [facility]; Protocol Stop: 05/15/18 18:01 Last Admin: 05/09/18 17:28 Dose: 750 mg Azithromycin (Zithromax) 1,200 mg PO QWK [facility]; Protocol Benzocaine/Menthol (Cepacol Sore Throat) 1 suellen MT Q2H PRN PRN Reason: Sore Throat Last Admin: 05/08/18 17:16 Dose: 1 suellen Calamine (Calamine Lotion) 0 ml TOP BID [facility] Last Admin: 05/09/18 17:33 Dose: 120 ml Al Hydrox/Mg Hydrox/Simethicone 30 ml/Diphenhydramine HCl 75 mg/Lidocaine 30 ml 0 ml PO Q2H PRN PRN Reason: Mouth/Throat Pain Last Admin: 05/06/18 17:25 Dose: 1 soln Emtricitabine/Tenofovir (Truvada 200 Mg-300 Mg) 1 tab PO DAILY [facility]; Protocol Last Admin: 05/09/18 10:14 Dose: 1 tab Enoxaparin Sodium (Lovenox) 40 mg SC DAILY [facility]; Protocol Last Admin: 05/09/18 10:15 Dose: 40 mg Hydrocortisone (Anusol-Hc) 0 gm SD BID [facility] Last Admin: 05/09/18 17:33 Dose: 1 applic Meropenem (Merrem Iv 1 Gm Premix) 1 gm in 50 mls @ 100 mls/hr IVPB Q8 [facility]; Protocol Last Admin: 05/10/18 05:28 Dose: 100 mls/hr Vancomycin HCl (Vancomycin 1gm) 1 gm in 250 mls @ 167 mls/hr IVPB Q12H [facility]; Protocol Stop: 05/13/18 11:16 Last Admin: 05/09/18 22:26 Dose: 167 mls/hr Sodium Chloride (Sodium Chloride 0.9%) 1,000 mls @ 75 mls/hr IV .[id number] [facility] Last Admin: 05/09/18 10:46 Dose: 75 mls/hr Loperamide HCl (Imodium) 2 mg PO QID PRN PRN Reason: Diarrhea Pantoprazole Sodium (Protonix Ec Tab) 40 mg PO 0600 [facility] Last Admin: 05/10/18 05:29 Dose: 40 mg Raltegravir (Isentress) 400 mg PO BID [facility]; Protocol Last Admin: 05/09/18 17:29 Dose: 400 mg - Labs Labs: 05/10/18 06:00 05/09/18 06:00 PT 11.1 SECONDS (9.4-12.5) 05/05/18 12:30 INR 1.00 05/05/18 12:30 APTT 29.1 Seconds (26.9-38.3) 05/05/18 12:30 Attending/Attestation - Attestation I have personally seen and examined this patient.: Yes I have fully participated in the care of the patient.: Yes I have reviewed all pertinent clinical information, including history, physical exam and plan: Yes Notes (Text): Patient seen and examined by me with resident at 10AM on 05/09/18. Case including HPI, physical exam, and assessment and plan discussed with resident. Agree with above with following additions/corrections. Patient is a 52 year old male with past medical history significant for AIDS and anal carcinoma that presented to the emergency room with perirectal pain and burning. Patient states he is feeling a little better today. Has had 2 episodes of diarrhea this morning. Complains of pain in his rectum. Patient is tolerating diet today. No chest pain or palpitations. No headaches or dizziness. No fevers or chills. No nausea, vomiting, or abdominal pain. No dysuria. Physical exam: General: Awake and alert sitting up in bed in no acute distress HEENT: Normocephalic, atraumatic. Extraocular muscles intact, pupils equal and reactive, no scleral icterus. Oropharynx is pink and moist. No pharyngeal erythema or exudate appreciated. Neck is supple. Cardiovascular: Regular rhythm. Normal S1 and S2. No murmurs, rubs, or gallops appreciated Pulmonary: Normal respiratory effort. No rhonchi, rales, or wheezing appreciated. Gastrointestinal: Soft, nondistended. Nontender. Positive bowel sounds all 4 quadrants. No guarding. Musculoskeletal: Moves all extremities. No calf tenderness. Trace lower extremity edema appreciated. Central nervous system: AAOx3, CN 2-12 grossly intact. Dermatologic: Skin warm and dry. Assessment and plan: Patient is a 52 year old male with past medical history significant for AIDs and anal carcinoma that presented to the emergency room with perirectal pain and burning. 1. Neutropenic fever. Afebrile so far today. ID following, recommendations appreciated. Blood cultures and urine cultures with no growth. C-diff negative. Serum cryptococcus antigen not detected. Continue Tylenol as needed. ID following, recommendations appreciated. Patient febrile yesterday. Continue vancomycin and Merrem. Hem/onc following, recommendations appreciated. S/P granix 05/08/18. Neutropenia improved, ANC improved 2. Cellulitis vs radiation dermatitis. More likely radiation dermatitis. Continue with pain control. CT abd/pelvis per radiologist showed no evidence of perianal abscess formation, moderate diffuse thickening of the distal rectum and anal canal noted likely related to the patients known history of squamous cell carcinoma of the anal canal, moderate circumferential urinary bladder wall thickening. 3. Diarrhea. Likely secondary to chemo and radiation. C-diff negative. Placed on immodium as needed, patient was taking this as an outpatient. 4. Rectal pain. Continue anusol-HC per rectum BID. Continue with calamine lotion as needed. Continue bacitracian for open fissures. 5. Transaminitis. May be secondary to medications. Stable. Continue to monitor. 6. Oral Mucositis. Continue with Magic mouthwash. 7. Squamous cell carcinoma of the anal canal. Hem/onc following, recommendations appreciated. S/P chemo. Continue radiation. 8. AIDS. Continue Isentress and Truvada. Continue Zithromax 1200mg weekly. Continue Mepron 750mg PO BID. 9. Homelessness. Social work following. 10. GI/DVT prophylaxis. Protonix/Lovenox 11. Patient is a full code. Case was discussed in detail with the patient regarding current diagnosis and treatment plan. All questions answered.
--- NOTE | 2018-05-09 21:08 | CP.PCM.PN ---
Subjective - Date & Time of Evaluation Date of Evaluation: 05/09/18 Time of Evaluation: 12:00 - Subjective Subjective: Has some pain at anus Objective - Vital Signs/Intake and Output Vital Signs (last 24 hours): Temp Pulse Resp BP Pulse Ox 98.5 F 90 20 129/83 100 05/09/18 16:35 05/09/18 16:35 05/09/18 16:35 05/09/18 16:35 05/09/18 16:35 Intake and Output: 05/09/18 05/10/18 18:59 06:59 Intake Total 860 Balance 860 - Medications Medications: Current Medications Acetaminophen (Tylenol 325mg Tab) 650 mg PO Q4H PRN PRN Reason: Fever >100.4 F Last Admin: 05/08/18 17:16 Dose: 650 mg Atovaquone (Mepron) 750 mg PO BID [facility]; Protocol Stop: 05/15/18 18:01 Last Admin: 05/09/18 17:28 Dose: 750 mg Azithromycin (Zithromax) 1,200 mg PO QWK [facility]; Protocol Benzocaine/Menthol (Cepacol Sore Throat) 1 suellne MT Q2H PRN PRN Reason: Sore Throat Last Admin: 05/08/18 17:16 Dose: 1 suellen Calamine (Calamine Lotion) 0 ml TOP BID [facility] Last Admin: 05/09/18 17:33 Dose: 120 ml Al Hydrox/Mg Hydrox/Simethicone 30 ml/Diphenhydramine HCl 75 mg/Lidocaine 30 ml 0 ml PO Q2H PRN PRN Reason: Mouth/Throat Pain Last Admin: 05/06/18 17:25 Dose: 1 soln Emtricitabine/Tenofovir (Truvada 200 Mg-300 Mg) 1 tab PO DAILY [facility]; Protocol Last Admin: 05/09/18 10:14 Dose: 1 tab Enoxaparin Sodium (Lovenox) 40 mg SC DAILY [facility]; Protocol Last Admin: 05/09/18 10:15 Dose: 40 mg Hydrocortisone (Anusol-Hc) 0 gm CA BID [facility] Last Admin: 05/09/18 17:33 Dose: 1 applic Meropenem (Merrem Iv 1 Gm Premix) 1 gm in 50 mls @ 100 mls/hr IVPB Q8 [facility]; Protocol Last Admin: 05/09/18 13:50 Dose: 100 mls/hr Vancomycin HCl (Vancomycin 1gm) 1 gm in 250 mls @ 167 mls/hr IVPB Q12H [facility]; Protocol Stop: 05/13/18 11:16 Last Admin: 05/09/18 10:16 Dose: 167 mls/hr Sodium Chloride (Sodium Chloride 0.9%) 1,000 mls @ 75 mls/hr IV .[id number] [facility] Last Admin: 05/09/18 10:46 Dose: 75 mls/hr Loperamide HCl (Imodium) 2 mg PO QID PRN PRN Reason: Diarrhea Pantoprazole Sodium (Protonix Ec Tab) 40 mg PO 0600 [facility] Last Admin: 05/09/18 05:30 Dose: 40 mg Raltegravir (Isentress) 400 mg PO BID [facility]; Protocol Last Admin: 05/09/18 17:29 Dose: 400 mg - Labs Labs: 05/09/18 06:00 05/09/18 06:00 PT 11.1 SECONDS (9.4-12.5) 05/05/18 12:30 INR 1.00 05/05/18 12:30 APTT 29.1 Seconds (26.9-38.3) 05/05/18 12:30 - Head Exam Head Exam: ATRAUMATIC - Eye Exam Eye Exam: Normal appearance - ENT Exam ENT Exam: Mucous Membranes Dry - Respiratory Exam Respiratory Exam: NORMAL BREATHING PATTERN - Cardiovascular Exam Cardiovascular Exam: +S1, +S2 - GI/Abdominal Exam GI & Abdominal Exam: Normal Bowel Sounds Assessment and Plan (1) Pancytopenia Assessment & Plan: multifactorial AIDS, alcoholism, chemoradiation s/p growth factor support mild neutropenia Status: Acute (2) Anal cancer Assessment & Plan: outpatient treatment Status: Acute
[2018-05-10] MEDS: Meropenem IV 1 gm in NS 1 GM/50 ML BAG IVPB SCH ×3 (05:28→21:38)
[2018-05-10] MEDS: Pantoprazole 40 mg EC Tab PO SCH (05:29)
[2018-05-10 06:39] LABS: HEMOGLOBIN 9.5 g/dL (14.0-18.0); LYMPH # 0.3 (1.2-3.4); LYMPH % 26.5 % (22.0-35.0); MEAN CELL VOLUME 86.4 fl (80.0-105.0); MEAN CORPUSCULAR HEMOGLOBIN 28.7 pg (25.0-35.0); MEAN CORPUSCULAR HGB CONC 33.2 g/dl (31.0-37.0); MEAN PLATELET VOLUME 10.5 fl (7.0-11.0); MONO # 0.4 (0.1-0.6); MONO % 34.3 % (1.0-6.0); RBC 3.31 10^6/uL (3.5-6.1); RED CELL DISTRIBUTION WIDTH 15.7 % (11.5-14.5)
[2018-05-10 08:52] LABS: ALB/GLOB RATIO 0.9 (1.1-1.8); ALBUMIN 3.1 g/dL (3.0-4.8); ALT/SGPT 109 U/L (7-56); AST/SGOT 86 U/L (17-59); BLOOD UREA NITROGEN 9 mg/dL (7-21); CALCIUM 8.6 mg/dL (8.4-10.5); GFR NON-AFRICAN AMERICAN > 60
--- NOTE | 2018-05-10 09:18 | CP.PCM.PN ---
Subjective - Date & Time of Evaluation Date of Evaluation: 05/10/18 Time of Evaluation: 09:15 - Subjective Subjective: Mr Mathis has an anal cancer on chemoradiation. He has been on break with the radiation for some time now. He has only had of his intended treatments. Currently, he has dry desquamation around buttocks and groins. He has a couple of small areas of moist desquamation in the suprapubic region and perianal region. He is using bactroban. We have recommended aquaphor. We are continuing to hold his radiation. Objective - Vital Signs/Intake and Output Vital Signs (last 24 hours): Temp Pulse Resp BP Pulse Ox 98.9 F 74 20 117/80 99 05/10/18 06:00 05/10/18 06:00 05/10/18 06:00 05/10/18 06:00 05/10/18 06:00 Intake and Output: 05/10/18 05/10/18 06:59 18:59 Intake Total 240 Balance 240 - Medications Medications: Current Medications Acetaminophen (Tylenol 325mg Tab) 650 mg PO Q4H PRN PRN Reason: Fever >100.4 F Last Admin: 05/08/18 17:16 Dose: 650 mg Atovaquone (Mepron) 750 mg PO BID [facility]; Protocol Stop: 05/15/18 18:01 Last Admin: 05/09/18 17:28 Dose: 750 mg Azithromycin (Zithromax) 1,200 mg PO QWK [facility]; Protocol Benzocaine/Menthol (Cepacol Sore Throat) 1 suellen MT Q2H PRN PRN Reason: Sore Throat Last Admin: 05/08/18 17:16 Dose: 1 suellen Calamine (Calamine Lotion) 0 ml TOP BID [facility] Last Admin: 05/09/18 17:33 Dose: 120 ml Al Hydrox/Mg Hydrox/Simethicone 30 ml/Diphenhydramine HCl 75 mg/Lidocaine 30 ml 0 ml PO Q2H PRN PRN Reason: Mouth/Throat Pain Last Admin: 05/06/18 17:25 Dose: 1 soln Emtricitabine/Tenofovir (Truvada 200 Mg-300 Mg) 1 tab PO DAILY [facility]; Protocol Last Admin: 05/09/18 10:14 Dose: 1 tab Enoxaparin Sodium (Lovenox) 40 mg SC DAILY [facility]; Protocol Last Admin: 05/09/18 10:15 Dose: 40 mg Hydrocortisone (Anusol-Hc) 0 gm [place] BID [facility] Last Admin: 05/09/18 17:33 Dose: 1 applic Meropenem (Merrem Iv 1 Gm Premix) 1 gm in 50 mls @ 100 mls/hr IVPB Q8 [facility]; Protocol Last Admin: 05/10/18 05:28 Dose: 100 mls/hr Vancomycin HCl (Vancomycin 1gm) 1 gm in 250 mls @ 167 mls/hr IVPB Q12H [facility]; Protocol Stop: 05/13/18 11:16 Last Admin: 05/09/18 22:26 Dose: 167 mls/hr Sodium Chloride (Sodium Chloride 0.9%) 1,000 mls @ 75 mls/hr IV .[id number] [facility] Last Admin: 05/09/18 10:46 Dose: 75 mls/hr Loperamide HCl (Imodium) 2 mg PO QID PRN PRN Reason: Diarrhea Multi-Ingredient Ointment (Hydrophor Oint) 0 gm TOP Q6H [facility] Pantoprazole Sodium (Protonix Ec Tab) 40 mg PO 0600 [facility] Last Admin: 05/10/18 05:29 Dose: 40 mg Raltegravir (Isentress) 400 mg PO BID [facility]; Protocol Last Admin: 05/09/18 17:29 Dose: 400 mg - Labs Labs: 05/10/18 06:00 05/10/18 08:30 PT 11.1 SECONDS (9.4-12.5) 05/05/18 12:30 INR 1.00 05/05/18 12:30 APTT 29.1 Seconds (26.9-38.3) 05/05/18 12:30
[2018-05-10] MEDS: Bacitracin 500 Units/gm Oint Foilpak UD TOP SCH (10:09)
[2018-05-10] MEDS: Atovaquone 750 mg/5 ml Susp UD PO SCH ×2 (10:10→17:38)
[2018-05-10] MEDS: Enoxaparin 40 mg Syringe SC SCH (10:10)
[2018-05-10] MEDS: Emtricitabine-Tenofovir 200 mg-300 mg Tab PO SCH (10:10)
[2018-05-10] MEDS: Petrolatum-Mineral Oil Oint (100gm) TOP SCH ×3 (10:11→21:37)
[2018-05-10] MEDS: Vancomycin 1gm in NS 250ml 1 GM/250 ML BAG IVPB SCH ×2 (10:15→22:55)
[2018-05-10] MEDS: Calamine-Zinc Oxide Lotion (120 ml) TOP SCH ×2 (10:37→17:42)
[2018-05-10] MEDS: Hydrocortisone 2.5% Rectal Cream(30 gm) PR SCH ×2 (10:38→17:41)
--- NOTE | 2018-05-10 13:00 | CP.PCM.PN ---
<Kendra Paez - Last Filed: 05/10/18 12:57> Subjective - Date & Time of Evaluation Date of Evaluation: 05/10/18 Time of Evaluation: 12:57 - Subjective Subjective: INTERNAL MEDICINE PROGRESS NOTE FOR DR MARLO Paez PGY1 Pt seen and examined at bedside this am. Pts ANC dropped again. He doesnt report diarrhea. He reports improvement in skin pain with bacitracin. He continue to report rash around his perineum, and reports he has been rubbing it off with warm water and rag. He otherwise 12 point ROS Objective - Vital Signs/Intake and Output Vital Signs (last 24 hours): Temp Pulse Resp BP Pulse Ox 98.9 F 74 20 117/80 99 05/10/18 06:00 05/10/18 06:00 05/10/18 06:00 05/10/18 06:00 05/10/18 06:00 Intake and Output: 05/10/18 05/10/18 06:59 18:59 Intake Total 240 Balance 240 - Medications Medications: Current Medications Acetaminophen (Tylenol 325mg Tab) 650 mg PO Q4H PRN PRN Reason: Fever >100.4 F Last Admin: 05/08/18 17:16 Dose: 650 mg Atovaquone (Mepron) 750 mg PO BID [facility]; Protocol Stop: 05/15/18 18:01 Last Admin: 05/10/18 10:10 Dose: 750 mg Azithromycin (Zithromax) 1,200 mg PO QWK [facility]; Protocol Bacitracin (Bacitracin) 1 ea TOP DAILY [facility] Last Admin: 05/10/18 10:09 Dose: 1 ea Benzocaine/Menthol (Cepacol Sore Throat) 1 suellen MT Q2H PRN PRN Reason: Sore Throat Last Admin: 05/08/18 17:16 Dose: 1 suellen Calamine (Calamine Lotion) 0 ml TOP BID [facility] Last Admin: 05/10/18 10:37 Dose: 120 ml Al Hydrox/Mg Hydrox/Simethicone 30 ml/Diphenhydramine HCl 75 mg/Lidocaine 30 ml 0 ml PO Q2H PRN PRN Reason: Mouth/Throat Pain Last Admin: 05/06/18 17:25 Dose: 1 soln Emtricitabine/Tenofovir (Truvada 200 Mg-300 Mg) 1 tab PO DAILY [facility]; Protocol Last Admin: 05/10/18 10:10 Dose: 1 tab Enoxaparin Sodium (Lovenox) 40 mg SC DAILY [facility]; Protocol Last Admin: 05/10/18 10:10 Dose: 40 mg Hydrocortisone (Anusol-Hc) 0 gm [place] BID [facility] Last Admin: 05/10/18 10:38 Dose: 1 applic Meropenem (Merrem Iv 1 Gm Premix) 1 gm in 50 mls @ 100 mls/hr IVPB Q8 [facility]; Protocol Last Admin: 05/10/18 05:28 Dose: 100 mls/hr Vancomycin HCl (Vancomycin 1gm) 1 gm in 250 mls @ 167 mls/hr IVPB Q12H [facility]; Protocol Stop: 05/13/18 11:16 Last Admin: 05/10/18 10:15 Dose: 167 mls/hr Sodium Chloride (Sodium Chloride 0.9%) 1,000 mls @ 75 mls/hr IV .[id number] [facility] Last Admin: 05/09/18 10:46 Dose: 75 mls/hr Loperamide HCl (Imodium) 2 mg PO QID PRN PRN Reason: Diarrhea Multi-Ingredient Ointment (Hydrophor Oint) 0 gm TOP Q6H [facility] Last Admin: 05/10/18 10:11 Dose: 1 applic Pantoprazole Sodium (Protonix Ec Tab) 40 mg PO 0600 [facility] Last Admin: 05/10/18 05:29 Dose: 40 mg Raltegravir (Isentress) 400 mg PO BID [facility]; Protocol Last Admin: 05/10/18 10:10 Dose: 400 mg - Labs Labs: 05/10/18 06:00 05/10/18 08:30 PT 11.1 SECONDS (9.4-12.5) 05/05/18 12:30 INR 1.00 05/05/18 12:30 APTT 29.1 Seconds (26.9-38.3) 05/05/18 12:30 - Constitutional Appears: Cachectic, Chronically Ill - Head Exam Head Exam: NORMAL INSPECTION, NORMOCEPHALIC - Eye Exam Eye Exam: EOMI, Normal appearance - ENT Exam ENT Exam: Mucous Membranes Moist, Normal Exam - Neck Exam Neck Exam: Normal Inspection - Respiratory Exam Respiratory Exam: Clear to Ausculation Bilateral, NORMAL BREATHING PATTERN - Cardiovascular Exam Cardiovascular Exam: REGULAR RHYTHM, +S1, +S2 - GI/Abdominal Exam GI & Abdominal Exam: Soft. absent: Tenderness - Rectal Exam Rectal Exam: Hemorrhoids Additional comments: diffuse healing rash around perineum - Exam Additional comments: erythema around groin region. No purulence or drainage noted - Extremities Exam Extremities Exam: Normal Inspection. absent: Calf Tenderness - Back Exam Back Exam: NORMAL INSPECTION - Neurological Exam Neurological Exam: Alert, Awake, Oriented x3 - Psychiatric Exam Psychiatric exam: Normal Affect, Normal Mood - Skin Skin Exam: Dry, Erythema (perneal, groin), Warm Assessment and Plan - Assessment and Plan (Free Text) Assessment: 52 year old male with a PMH of AIDS with last know CD4 <20, anal carcinoma s/p chemoradiation to rectal presented with perirectal pain Plan: Severe neutropenia afebrile past 24 hours. blood cultures have been negative ANC dropped down to severe level today (390). Will administer filgastrim continue on neutropenic precautions tylenol prn for neutropenic fevers AIDS Last known CD4 is <20 continue azithromycin 1200mg qwk for MAC ppx Continue combination-antiretroviral therapy with truvada(emtricitabine/tenofovir) and raltegravir Continue atovaquone (TMP-SMX contraindicated d/t neutropenia) for PJP, vanc, meropenem cryptococcous Ag is negative prelim cultures negative ID recs appreciated Radiation Dermatitis start bacitracin in rectal area continue with aquaphor Likely 2/2 to post radiation skin changes hold laxatives. C. Diff stool Ag/toxin:negative 05/05 CT A/P showed no fluid collection near rectum, only inflammation Cont anusol Start calamine lotion Diarrhea hold laxatives administer loperamide most recent c.diff is negative Dry cough Given AIDS status with very low CD4 count will f/u ID recs Continue cepacol Tongue lesions Possible mucositis 2/2 chemo vs AIDS related, although does not appear infectious continue magic mouth wash Anorectal cancer will continue to hold radiation Ppx: lovenox/protonix Case seen, examined and discussed with attending physician Dr. Marlo Paez PGY1 <Felisha Sellers R - Last Filed: 05/11/18 17:08> Objective - Vital Signs/Intake and Output Vital Signs (last 24 hours): Temp Pulse Resp BP Pulse Ox 98.0 F 70 20 118/83 98 05/11/18 16:27 05/11/18 16:27 05/11/18 16:27 05/11/18 16:27 05/11/18 16:27 - Medications Medications: Current Medications Acetaminophen (Tylenol 325mg Tab) 650 mg PO Q4H PRN PRN Reason: Fever >100.4 F Last Admin: 05/08/18 17:16 Dose: 650 mg Atovaquone (Mepron) 750 mg PO BID [facility]; Protocol Stop: 05/15/18 18:01 Last Admin: 05/11/18 09:04 Dose: 750 mg Azithromycin (Zithromax) 1,200 mg PO QWK [facility]; Protocol Bacitracin (Bacitracin) 1 ea TOP DAILY [facility] Last Admin: 05/11/18 09:04 Dose: 1 ea Benzocaine/Menthol (Cepacol Sore Throat) 1 suellen MT Q2H PRN PRN Reason: Sore Throat Last Admin: 05/11/18 09:04 Dose: 1 suellen Al Hydrox/Mg Hydrox/Simethicone 30 ml/Diphenhydramine HCl 75 mg/Lidocaine 30 ml 0 ml PO Q2H PRN PRN Reason: Mouth/Throat Pain Last Admin: 05/06/18 17:25 Dose: 1 soln Emtricitabine/Tenofovir (Truvada 200 Mg-300 Mg) 1 tab PO DAILY [facility]; Protocol Last Admin: 05/11/18 09:04 Dose: 1 tab Enoxaparin Sodium (Lovenox) 40 mg SC DAILY [facility]; Protocol Last Admin: 05/11/18 09:03 Dose: 40 mg Hydrocortisone (Anusol-Hc) 0 gm [place] BID [facility] Last Admin: 05/11/18 09:04 Dose: 1 applic Meropenem (Merrem Iv 1 Gm Premix) 1 gm in 50 mls @ 100 mls/hr IVPB Q8 [facility]; Protocol Last Admin: 05/11/18 13:31 Dose: 100 mls/hr Vancomycin HCl (Vancomycin 1gm) 1 gm in 250 mls @ 167 mls/hr IVPB Q12H [facility]; Protocol Stop: 05/13/18 11:16 Last Admin: 05/11/18 11:32 Dose: 167 mls/hr Sodium Chloride (Sodium Chloride 0.9%) 1,000 mls @ 75 mls/hr IV .[id number] [facility] Last Admin: 05/11/18 13:32 Dose: 75 mls/hr Loperamide HCl (Imodium) 2 mg PO QID PRN PRN Reason: Diarrhea Multi-Ingredient Ointment (Hydrophor Oint) 0 gm TOP Q6H [facility] Pantoprazole Sodium (Protonix Ec Tab) 40 mg PO 0600 [facility] Last Admin: 05/11/18 06:03 Dose: 40 mg Raltegravir (Isentress) 400 mg PO BID [facility]; Protocol Last Admin: 05/11/18 09:04 Dose: 400 mg - Labs Labs: 05/11/18 09:20 05/11/18 09:20 PT 11.1 SECONDS (9.4-12.5) 05/05/18 12:30 INR 1.00 05/05/18 12:30 APTT 29.1 Seconds (26.9-38.3) 05/05/18 12:30 Attending/Attestation - Attestation I have personally seen and examined this patient.: Yes I have fully participated in the care of the patient.: Yes I have reviewed all pertinent clinical information, including history, physical exam and plan: Yes Notes (Text): Patient seen and examined by me with resident at 11:10AM on 05/10/18. Case including HPI, physical exam, and assessment and plan discussed with resident. Agree with above with following additions/corrections. Patient is a 52 year old male with past medical history significant for AIDs and anal carcinoma that presented to the emergency room with perirectal pain and burning. Patient states he feels ok. Still with diarrhea. Still with rectal pain but creams are helping. No nausea, vomiting, or abdominal pain. Tolerating diet. No chest pain or palpitations. No headaches or dizziness. No fevers or chills. No dysuria. Physical exam: General: Awake and alert sitting up in bed in no acute distress HEENT: Normocephalic, atraumatic. Extraocular muscles intact, pupils equal and reactive, no scleral icterus. Oropharynx is pink and moist. No pharyngeal erythema or exudate appreciated. Neck is supple. Cardiovascular: Regular rhythm. Normal S1 and S2. No murmurs, rubs, or gallops a ppreciated Pulmonary: Normal respiratory effort. No rhonchi, rales, or wheezing appreciated. Gastrointestinal: Soft, nondistended. Nontender. Positive bowel sounds all 4 quadrants. No guarding. Musculoskeletal: Moves all extremities. No calf tenderness. No edema appreciated Central nervous system: AAOx3, CN 2-12 grossly intact. Dermatologic: Skin warm and dry. Assessment and plan: Patient is a 52 year old male with past medical history significant for AIDs and anal carcinoma that presented to the emergency room with perirectal pain and burning. 1. Neutropenic fever/Pancytopenia. Afebrile today. S/P granix 05/08/18. Discussed with Dr. Ren. Will give another dose of granix today. ID following, recommendations appreciated. Blood cultures and urine cultures with no growth. C-diff negative. Serum cryptococcus antigen not detected. Continue Tylenol as needed. Continue vancomycin and Merrem. Hem/onc following, recommendations appreciated. 2. Cellulitis vs radiation dermatitis. More likely radiation dermatitis. Continue with pain control. Continue with anusol cream and bacitracin. CT abd/pelvis per radiologist showed no evidence of perianal abscess formation, moderate diffuse thickening of the distal rectum and anal canal noted likely related to the patients known history of squamous cell carcinoma of the anal canal, moderate circumferential urinary bladder wall thickening. 3. Diarrhea. Likely secondary to chemo and radiation. C-diff negative. Continue immodium as needed, patient was taking this as an outpatient. 4. Rectal pain. Continue anusol-HC per rectum BID. Continue with calamine lotion as needed. Continue bacitracian for open fissures. 5. Transaminitis. May be secondary to medications. Stable. Continue to monitor. 6. Oral Mucositis. Continue with Magic mouthwash. 7. Squamous cell carcinoma of the anal canal. Hem/onc following, recommendations appreciated. S/P chemo. Radiation on hold for now per Radiation oncologist. 8. AIDs. Continue Isentress and Truvada. Continue Zithromax 1200mg weekly. Continue Mepron 750mg PO BID. 9. Homelessness. Social work following. 10. GI/DVT prophylaxis. Protonix/Lovenox 11. Patient is a full code. Case was discussed in detail with the patient regarding current diagnosis and treatment plan. All questions answered.
--- NOTE | 2018-05-10 13:50 | CP.PCM.PN ---
Subjective - Date & Time of Evaluation Date of Evaluation: 05/10/18 Time of Evaluation: 11:05 - Subjective Subjective: Comfortable in bed but still having pain in the anal area, no fevers, appetite is a little better, has occasional nausea. Objective - Vital Signs/Intake and Output Vital Signs (last 24 hours): Temp Pulse Resp BP Pulse Ox 99.3 F 70 18 114/70 98 05/09/18 08:33 05/09/18 08:33 05/09/18 08:33 05/09/18 08:33 05/09/18 08:33 Intake and Output: 05/09/18 05/09/18 06:59 18:59 Intake Total 1730 Balance 1730 - Medications Medications: Current Medications Acetaminophen (Tylenol 325mg Tab) 650 mg PO Q4H PRN PRN Reason: Fever >100.4 F Last Admin: 05/08/18 17:16 Dose: 650 mg Atovaquone (Mepron) 750 mg PO BID [facility]; Protocol Stop: 05/15/18 18:01 Last Admin: 05/09/18 10:15 Dose: 750 mg Azithromycin (Zithromax) 1,200 mg PO QWK [facility]; Protocol Benzocaine/Menthol (Cepacol Sore Throat) 1 suellen MT Q2H PRN PRN Reason: Sore Throat Last Admin: 05/08/18 17:16 Dose: 1 suellen Calamine (Calamine Lotion) 0 ml TOP BID [facility] Last Admin: 05/08/18 17:15 Dose: 1 ml Al Hydrox/Mg Hydrox/Simethicone 30 ml/Diphenhydramine HCl 75 mg/Lidocaine 30 ml 0 ml PO Q2H PRN PRN Reason: Mouth/Throat Pain Last Admin: 05/06/18 17:25 Dose: 1 soln Docusate Sodium (Colace) 100 mg PO DAILY [facility] Last Admin: 05/07/18 10:51 Dose: 100 mg Emtricitabine/Tenofovir (Truvada 200 Mg-300 Mg) 1 tab PO DAILY [facility]; Protocol Last Admin: 05/09/18 10:14 Dose: 1 tab Enoxaparin Sodium (Lovenox) 40 mg SC DAILY [facility]; Protocol Last Admin: 05/09/18 10:15 Dose: 40 mg Hydrocortisone (Anusol-Hc) 0 gm NV BID [facility] Last Admin: 05/08/18 17:15 Dose: 1 applic Meropenem (Merrem Iv 1 Gm Premix) 1 gm in 50 mls @ 100 mls/hr IVPB Q8 [facility]; Protocol Last Admin: 05/09/18 05:30 Dose: 100 mls/hr Vancomycin HCl (Vancomycin 1gm) 1 gm in 250 mls @ 167 mls/hr IVPB Q12H [facility]; Protocol Stop: 05/13/18 11:16 Last Admin: 05/09/18 10:16 Dose: 167 mls/hr Sodium Chloride (Sodium Chloride 0.9%) 1,000 mls @ 75 mls/hr IV .[id number] [facility] Last Admin: 05/08/18 18:06 Dose: 75 mls/hr Pantoprazole Sodium (Protonix Ec Tab) 40 mg PO 0600 [facility] Last Admin: 05/09/18 05:30 Dose: 40 mg Polyethylene Glycol (Miralax) 17 gm PO DAILY [facility] Last Admin: 05/07/18 15:45 Dose: Not Given Raltegravir (Isentress) 400 mg PO BID [facility]; Protocol Last Admin: 05/09/18 10:14 Dose: 400 mg - Labs Labs: 05/09/18 06:00 05/09/18 06:00 PT 11.1 SECONDS (9.4-12.5) 05/05/18 12:30 INR 1.00 05/05/18 12:30 APTT 29.1 Seconds (26.9-38.3) 05/05/18 12:30 - Constitutional Appears: Cachectic, Chronically Ill - ENT Exam ENT Exam: Mucous Membranes Moist - Neck Exam Neck Exam: absent: Meningismus - Respiratory Exam Respiratory Exam: Decreased Breath Sounds Additional comments: right anterior chest wall port in place - Cardiovascular Exam Cardiovascular Exam: +S1, +S2 - GI/Abdominal Exam GI & Abdominal Exam: Soft. absent: Tenderness Assessment and Plan - Assessment and Plan (Free Text) Plan: Assessment S/P Febrile neutropenia in this patient with squamous cell anal carcinoma on chemotherapy, with possible perianal infection HIV/AIDS Plan continue Vancomycin and Merrem for now ; cultures have been negative; now that patient is not neutropenic anymore, will see if we change to PO antibiotics in the next 24-48 hours will continue to monitor WBC count serum Crypt Ag is not detected continue cART, DIPAK and PJP prophylaxis
--- NOTE | 2018-05-10 14:34 | CP.PCM.CON ---
History of Present Illness - History of Present Illness History of Present Illness: Palliative consult requested by Dr Leena Mukherjee Reason: Advance care planning 52 year old male with history of anal cancer, AIDS who presented on 05/05/18 with scrotal/ anal skin desquamation and perirectal pain Chest X ray: No active disease CT abdomen/pelvis: No evidence of abscess, moderate diffuse thickening of the distal rectum and anal canal related to known history of squamous cell cancer. Moderate circumferential urinary bladder wall thickening. Labs: PMHx: squamous cell anal cancer currently receiving chemo/XRT,AIDS, substance abuse,depression, hemorrhoid. Social History: Former IV drug use, alcohol and tobacco use. Homeless. Family History: Non contributory Advance Care Planning: He does not have an Advanced Directive. Review of Systems: As per HPI, 12 point review otherwise negative Past Patient History - Infectious Disease Hx of Infectious Diseases: None - Past Medical History & Family History Past Medical History?: Yes - Past Social History Smoking Status: Former Smoker - CARDIAC Hx Cardiac Disorders: No - PULMONARY Hx Respiratory Disorders: No - NEUROLOGICAL Hx Neurological Disorder: No - HEENT Hx HEENT Problems: No - RENAL Hx Chronic Kidney Disease: No - ENDOCRINE/METABOLIC Hx Endocrine Disorders: No - HEMATOLOGICAL/ONCOLOGICAL Hx Blood Disorders: Yes Hx Cancer: Yes (Anal) Hx Human Immunodeficiency Virus (HIV): Yes - INTEGUMENTARY Hx Dermatological Problems: Yes Hx Squamous Cell: Yes (Anal Ca) - MUSCULOSKELETAL/RHEUMATOLOGICAL Hx Musculoskeletal Disorders: Yes Hx Falls: No - GASTROINTESTINAL Hx Gastrointestinal Disorders: No - GENITOURINARY/GYNECOLOGICAL Hx Genitourinary Disorders: No - PSYCHIATRIC Hx Psychophysiologic Disorder: Yes Hx Depression: Yes Hx Substance Use: Yes - SURGICAL HISTORY Hx Surgeries: Yes Other/Comment: RIGHT CHEEK, LEFT BARROS SX - ANESTHESIA Hx Anesthesia: Yes Hx Anesthesia Reactions: No Meds Allergies/Adverse Reactions: Allergies Allergy/AdvReac Type Severity Reaction Status Date / Time No Known Allergies Allergy Verified 05/05/18 11:26 - Medications Medications: Current Medications Acetaminophen (Tylenol 325mg Tab) 650 mg PO Q4H PRN PRN Reason: Fever >100.4 F Last Admin: 05/08/18 17:16 Dose: 650 mg Atovaquone (Mepron) 750 mg PO BID [facility]; Protocol Stop: 05/15/18 18:01 Last Admin: 05/10/18 10:10 Dose: 750 mg Azithromycin (Zithromax) 1,200 mg PO QWK [facility]; Protocol Bacitracin (Bacitracin) 1 ea TOP DAILY [facility] Last Admin: 05/10/18 10:09 Dose: 1 ea Benzocaine/Menthol (Cepacol Sore Throat) 1 suellen MT Q2H PRN PRN Reason: Sore Throat Last Admin: 05/08/18 17:16 Dose: 1 suellen Calamine (Calamine Lotion) 0 ml TOP BID [facility] Last Admin: 05/10/18 10:37 Dose: 120 ml Al Hydrox/Mg Hydrox/Simethicone 30 ml/Diphenhydramine HCl 75 mg/Lidocaine 30 ml 0 ml PO Q2H PRN PRN Reason: Mouth/Throat Pain Last Admin: 05/06/18 17:25 Dose: 1 soln Emtricitabine/Tenofovir (Truvada 200 Mg-300 Mg) 1 tab PO DAILY [facility]; Protocol Last Admin: 05/10/18 10:10 Dose: 1 tab Enoxaparin Sodium (Lovenox) 40 mg SC DAILY [facility]; Protocol Last Admin: 05/10/18 10:10 Dose: 40 mg Hydrocortisone (Anusol-Hc) 0 gm [place] BID [facility] Last Admin: 05/10/18 10:38 Dose: 1 applic Meropenem (Merrem Iv 1 Gm Premix) 1 gm in 50 mls @ 100 mls/hr IVPB Q8 [facility]; Protocol Last Admin: 05/10/18 05:28 Dose: 100 mls/hr Vancomycin HCl (Vancomycin 1gm) 1 gm in 250 mls @ 167 mls/hr IVPB Q12H [facility]; Protocol Stop: 05/13/18 11:16 Last Admin: 05/10/18 10:15 Dose: 167 mls/hr Sodium Chloride (Sodium Chloride 0.9%) 1,000 mls @ 75 mls/hr IV .[id number] [facility] Last Admin: 05/09/18 10:46 Dose: 75 mls/hr Loperamide HCl (Imodium) 2 mg PO QID PRN PRN Reason: Diarrhea Multi-Ingredient Ointment (Hydrophor Oint) 0 gm TOP Q6H [facility] Last Admin: 05/10/18 10:11 Dose: 1 applic Pantoprazole Sodium (Protonix Ec Tab) 40 mg PO 0600 [facility] Last Admin: 05/10/18 05:29 Dose: 40 mg Raltegravir (Isentress) 400 mg PO BID [facility]; Protocol Last Admin: 05/10/18 10:10 Dose: 400 mg Results - Vital Signs Recent Vital Signs: Last Vital Signs Temp 98.9 F 05/10/18 06:00 Pulse 74 05/10/18 06:00 Resp 20 05/10/18 06:00 BP 117/80 05/10/18 06:00 Pulse Ox 99 05/10/18 06:00 - Labs Result Diagrams: 05/10/18 06:00 05/10/18 08:30 Labs: Laboratory Results - last 24 hr 05/10/18 05/10/18 05/10/18 06:00 06:00 08:30 WBC 1.0 L* D RBC 3.31 L Hgb 9.5 L Hct 28.6 L MCV 86.4 MCH 28.7 MCHC 33.2 RDW 15.7 H Plt Count 86 L MPV 10.5 Neut % (Auto) 38.2 L Lymph % (Auto) 26.5 [place] % (Auto) 34.3 H Eos % (Auto) 1.0 L Baso % (Auto) 0.0 Lymph # (Auto) 0.3 L [place] # (Auto) 0.4 Eos # (Auto) 0.0 Baso # (Auto) 0.00 Absolute Neuts (auto) 0.39 L Sodium 136 Potassium 3.7 Chloride 105 Carbon Dioxide 28 Anion Gap 7 L BUN 9 Creatinine 0.6 L Est GFR ( Amer) > 60 Est GFR (Non-Af Amer) > 60 Random Glucose 88 Calcium 8.6 Phosphorus 3.4 Magnesium 2.0 Total Bilirubin 0.3 AST 86 H ALT 109 H Alkaline Phosphatase 82 Total Protein 6.5 Albumin 3.1 Globulin 3.4 Albumin/Globulin Ratio 0.9 L Assessment & Plan - Assessment and Plan (Free Text) Assessment: 52 year old male with history of AIDS, former IV dug use, anal cancer who is admitted with anemia, febrile neutropenia secondary to chemotherapy, elevated LFT's, mikael- rectal pain, mikael rectal skin desquamation,hemorrhoid. The patient is alert and oriented. He openly discussed his medical situation. He understands that he has serous illness. He states that he is a fighter and will continue to do so. He intends to complete treatment of his anal cancer. He does not have a car and relies on public transportation to get to his appointments. He works sporadically. He states that he is homeless but can go to a physical rehab rehab facility during the day and has a place to stay in the evenings. He does not want to go to a care home because he feels they are dirty and will expose him to germs. He states that it is hard to be compliant with his medical appointments because of the housing,work and transportation issues. He stated that he was in the process of applying for social security but is not been able to complete the paperwork. He has designated his friend, Carlos Marquez as his health care proxy. When asked if he would like to complete a proxy directive, states that he has this "paperwork" at home. We discussed resuscitation wishes. Benefits and burdens explained. He wants to be full code. He stated that everything is in God's hands and that he is not worried about what will happen to him. Psychosocial support provided Time spent with patient in goals of care and advance care planning discussion, 30 minutes Plan: Goals of care and advance care planning Refer to SW for psychosocial distress Febrile neutropenia: ID following/recs reviewed, cultures negative, continue Vancomycin,Zithromax and Merrem. Continue Raltegravir,Isentress, Truvada, Atovaquone XRT on hold, Dr Bustillo following. Will f/u Dr Ren as outpatient Topical ointments as ordered to scrotal area
[2018-05-10] MEDS: Sodium Chloride 0.9% 1,000 ML IV SCH (17:37)
[2018-05-11] MEDS: Sodium Chloride 0.9% 1,000 ML IV SCH ×2 (01:00→13:32)
[2018-05-11] MEDS: Pantoprazole 40 mg EC Tab PO SCH (06:03)
[2018-05-11] MEDS: Meropenem IV 1 gm in NS 1 GM/50 ML BAG IVPB SCH ×3 (06:04→21:50)
[2018-05-11] MEDS: Enoxaparin 40 mg Syringe SC SCH (09:03)
[2018-05-11] MEDS: Hydrocortisone 2.5% Rectal Cream(30 gm) PR SCH ×2 (09:04→18:11)
[2018-05-11] MEDS: Benzocaine/Menthol (Cepacol) Lozenge MT PRN (09:04)
[2018-05-11] MEDS: Emtricitabine-Tenofovir 200 mg-300 mg Tab PO SCH (09:04)
[2018-05-11] MEDS: Bacitracin 500 Units/gm Oint Foilpak UD TOP SCH (09:04)
[2018-05-11] MEDS: Atovaquone 750 mg/5 ml Susp UD PO SCH ×2 (09:04→18:01)
[2018-05-11] MEDS: Petrolatum-Mineral Oil Oint (100gm) TOP SCH ×3 (09:06→21:49)
[2018-05-11] MEDS: Calamine-Zinc Oxide Lotion (120 ml) TOP SCH (09:06)
[2018-05-11 09:50] LABS: BASO # 0.01 K/mm3 (0.0-2.0); BASO % 0.5 % (0.0-3.0); EOS # 0.1 (0.0-0.7); EOS % 2.5 % (1.5-5.0); HEMOGLOBIN 10.6 g/dL (14.0-18.0); LYMPH # 0.3 (1.2-3.4); LYMPH % 13.2 % (22.0-35.0); MEAN CELL VOLUME 86.6 fl (80.0-105.0); MEAN CORPUSCULAR HEMOGLOBIN 28.9 pg (25.0-35.0); MEAN CORPUSCULAR HGB CONC 33.3 g/dl (31.0-37.0); MEAN PLATELET VOLUME 11.9 fl (7.0-11.0); MONO # 0.9 (0.1-0.6); MONO % 42.6 % (1.0-6.0); PLATELET COUNT 78 10^3/uL (120.0-450.0); RBC 3.67 10^6/uL (3.5-6.1); RED CELL DISTRIBUTION WIDTH 16.1 % (11.5-14.5)
[2018-05-11 09:54] LABS: ALB/GLOB RATIO 0.9 (1.1-1.8); ALBUMIN 3.4 g/dL (3.0-4.8); ALT/SGPT 115 U/L (7-56); AST/SGOT 80 U/L (17-59); BLOOD UREA NITROGEN 7 mg/dL (7-21); CALCIUM 9.1 mg/dL (8.4-10.5); GFR NON-AFRICAN AMERICAN > 60
[2018-05-11 10:47] LABS: ATYPICAL LYMPHOCYTE 16 % (0.0-0.0); BAND 3 % (0-2); LYMPHOCYTE 20 % (22.0-35.0); MONOCYTE 20 % (1.0-6.0); NEUTROPHIL 37 % (50.0-70.0); PLATELET ESTIMATE LOW (NORMAL); POIKILOCYTOSIS SLIGHT
[2018-05-11 10:48] LABS: OVALOCYTES SLIGHT
[2018-05-11] MEDS: Vancomycin 1gm in NS 250ml 1 GM/250 ML BAG IVPB SCH ×2 (11:32→22:58)
--- NOTE | 2018-05-11 14:11 | CP.PCM.PN ---
Subjective - Date & Time of Evaluation Date of Evaluation: 05/11/18 Time of Evaluation: 08:50 - Subjective Subjective: Still complaining of anal pain, no fevers, no abdominal pain, no nausea. Objective - Vital Signs/Intake and Output Vital Signs (last 24 hours): Temp Pulse Resp BP Pulse Ox 98.9 F 74 20 117/80 99 05/10/18 06:00 05/10/18 06:00 05/10/18 06:00 05/10/18 06:00 05/10/18 06:00 Intake and Output: 05/10/18 05/10/18 06:59 18:59 Intake Total 240 Balance 240 - Medications Medications: Current Medications Acetaminophen (Tylenol 325mg Tab) 650 mg PO Q4H PRN PRN Reason: Fever >100.4 F Last Admin: 05/08/18 17:16 Dose: 650 mg Atovaquone (Mepron) 750 mg PO BID [facility]; Protocol Stop: 05/15/18 18:01 Last Admin: 05/10/18 10:10 Dose: 750 mg Azithromycin (Zithromax) 1,200 mg PO QWK [facility]; Protocol Bacitracin (Bacitracin) 1 ea TOP DAILY [facility] Last Admin: 05/10/18 10:09 Dose: 1 ea Benzocaine/Menthol (Cepacol Sore Throat) 1 suellen MT Q2H PRN PRN Reason: Sore Throat Last Admin: 05/08/18 17:16 Dose: 1 suellen Calamine (Calamine Lotion) 0 ml TOP BID [facility] Last Admin: 05/10/18 10:37 Dose: 120 ml Al Hydrox/Mg Hydrox/Simethicone 30 ml/Diphenhydramine HCl 75 mg/Lidocaine 30 ml 0 ml PO Q2H PRN PRN Reason: Mouth/Throat Pain Last Admin: 05/06/18 17:25 Dose: 1 soln Emtricitabine/Tenofovir (Truvada 200 Mg-300 Mg) 1 tab PO DAILY [facility]; Protocol Last Admin: 05/10/18 10:10 Dose: 1 tab Enoxaparin Sodium (Lovenox) 40 mg SC DAILY [facility]; Protocol Last Admin: 05/10/18 10:10 Dose: 40 mg Hydrocortisone (Anusol-Hc) 0 gm ND BID [facility] Last Admin: 05/10/18 10:38 Dose: 1 applic Meropenem (Merrem Iv 1 Gm Premix) 1 gm in 50 mls @ 100 mls/hr IVPB Q8 [facility]; Protocol Last Admin: 05/10/18 05:28 Dose: 100 mls/hr Vancomycin HCl (Vancomycin 1gm) 1 gm in 250 mls @ 167 mls/hr IVPB Q12H [facility]; Protocol Stop: 05/13/18 11:16 Last Admin: 05/10/18 10:15 Dose: 167 mls/hr Sodium Chloride (Sodium Chloride 0.9%) 1,000 mls @ 75 mls/hr IV .[id number] [facility] Last Admin: 05/09/18 10:46 Dose: 75 mls/hr Loperamide HCl (Imodium) 2 mg PO QID PRN PRN Reason: Diarrhea Multi-Ingredient Ointment (Hydrophor Oint) 0 gm TOP Q6H [facility] Last Admin: 05/10/18 10:11 Dose: 1 applic Pantoprazole Sodium (Protonix Ec Tab) 40 mg PO 0600 [facility] Last Admin: 05/10/18 05:29 Dose: 40 mg Raltegravir (Isentress) 400 mg PO BID [facility]; Protocol Last Admin: 05/10/18 10:10 Dose: 400 mg - Labs Labs: 05/10/18 06:00 05/10/18 08:30 PT 11.1 SECONDS (9.4-12.5) 05/05/18 12:30 INR 1.00 05/05/18 12:30 APTT 29.1 Seconds (26.9-38.3) 05/05/18 12:30 - Constitutional Appears: Chronically Ill - Head Exam Head Exam: NORMAL INSPECTION - ENT Exam ENT Exam: Mucous Membranes Moist - Neck Exam Neck Exam: absent: Meningismus - Respiratory Exam Respiratory Exam: Decreased Breath Sounds Additional comments: right anterior chest wall port in place - Cardiovascular Exam Cardiovascular Exam: +S1, +S2 - GI/Abdominal Exam GI & Abdominal Exam: Soft. 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 Carley Sellers
--- NOTE | 2018-05-11 14:24 | CP.PCM.PN ---
<Kendra Paez - Last Filed: 05/11/18 14:20> Subjective - Date & Time of Evaluation Date of Evaluation: 05/11/18 Time of Evaluation: 11:00 - Subjective Subjective: INTERNAL MEDICINE PROGRESS NOTE FOR DR. MARLO Paez PGY1 Pt seen and examined at bedside this am. Continues to report discomfort in perineal region from rash dermatitis. No other acute complaints Objective - Vital Signs/Intake and Output Vital Signs (last 24 hours): Temp Pulse Resp BP Pulse Ox 98.1 F 77 17 137/89 99 05/11/18 08:23 05/11/18 08:23 05/11/18 08:23 05/11/18 08:23 05/11/18 08:23 - Medications Medications: Current Medications Acetaminophen (Tylenol 325mg Tab) 650 mg PO Q4H PRN PRN Reason: Fever >100.4 F Last Admin: 05/08/18 17:16 Dose: 650 mg Atovaquone (Mepron) 750 mg PO BID [facility]; Protocol Stop: 05/15/18 18:01 Last Admin: 05/11/18 09:04 Dose: 750 mg Azithromycin (Zithromax) 1,200 mg PO QWK [facility]; Protocol Bacitracin (Bacitracin) 1 ea TOP DAILY [facility] Last Admin: 05/11/18 09:04 Dose: 1 ea Benzocaine/Menthol (Cepacol Sore Throat) 1 suellen MT Q2H PRN PRN Reason: Sore Throat Last Admin: 05/11/18 09:04 Dose: 1 suellen Calamine (Calamine Lotion) 0 ml TOP BID [facility] Last Admin: 05/11/18 09:06 Dose: 1 ml Al Hydrox/Mg Hydrox/Simethicone 30 ml/Diphenhydramine HCl 75 mg/Lidocaine 30 ml 0 ml PO Q2H PRN PRN Reason: Mouth/Throat Pain Last Admin: 05/06/18 17:25 Dose: 1 soln Emtricitabine/Tenofovir (Truvada 200 Mg-300 Mg) 1 tab PO DAILY [facility]; Protocol Last Admin: 05/11/18 09:04 Dose: 1 tab Enoxaparin Sodium (Lovenox) 40 mg SC DAILY [facility]; Protocol Last Admin: 05/11/18 09:03 Dose: 40 mg Furosemide (Lasix) 40 mg PO STAT STA Stop: 05/11/18 14:19 Hydrocortisone (Anusol-Hc) 0 gm ME BID [facility] Last Admin: 05/11/18 09:04 Dose: 1 applic Meropenem (Merrem Iv 1 Gm Premix) 1 gm in 50 mls @ 100 mls/hr IVPB Q8 [facility]; Protocol Last Admin: 05/11/18 13:31 Dose: 100 mls/hr Vancomycin HCl (Vancomycin 1gm) 1 gm in 250 mls @ 167 mls/hr IVPB Q12H [facility]; Protocol Stop: 05/13/18 11:16 Last Admin: 05/11/18 11:32 Dose: 167 mls/hr Sodium Chloride (Sodium Chloride 0.9%) 1,000 mls @ 75 mls/hr IV .[id number] [facility] Last Admin: 05/11/18 13:32 Dose: 75 mls/hr Loperamide HCl (Imodium) 2 mg PO QID PRN PRN Reason: Diarrhea Multi-Ingredient Ointment (Hydrophor Oint) 0 gm TOP Q6H [facility] Last Admin: 05/11/18 09:06 Dose: 1 applic Pantoprazole Sodium (Protonix Ec Tab) 40 mg PO 0600 [facility] Last Admin: 05/11/18 06:03 Dose: 40 mg Raltegravir (Isentress) 400 mg PO BID [facility]; Protocol Last Admin: 05/11/18 09:04 Dose: 400 mg - Labs Labs: 05/11/18 09:20 05/11/18 09:20 PT 11.1 SECONDS (9.4-12.5) 05/05/18 12:30 INR 1.00 05/05/18 12:30 APTT 29.1 Seconds (26.9-38.3) 05/05/18 12:30 - Additional Findings Additional findings: - Constitutional Appears: Cachectic, Chronically Ill - Head Exam Head Exam: NORMAL INSPECTION, NORMOCEPHALIC - Eye Exam Eye Exam: EOMI, Normal appearance - ENT Exam ENT Exam: Mucous Membranes Moist, Normal Exam - Neck Exam Neck Exam: Normal Inspection - Respiratory Exam Respiratory Exam: Clear to Ausculation Bilateral, NORMAL BREATHING PATTERN - Cardiovascular Exam Cardiovascular Exam: REGULAR RHYTHM, +S1, +S2 - GI/Abdominal Exam GI & Abdominal Exam: Soft. absent: Tenderness - Rectal Exam Rectal Exam: Hemorrhoids Additional comments: diffuse healing rash around perineum - Exam Additional comments: erythema around groin region. No purulence or drainage noted - Extremities Exam Extremities Exam: Normal Inspection. absent: Calf Tenderness - Back Exam Back Exam: NORMAL INSPECTION - Neurological Exam Neurological Exam: Alert, Awake, Oriented x3 - Psychiatric Exam Psychiatric exam: Normal Affect, Normal Mood - Skin Skin Exam: Dry, Erythema (perneal, groin), Warm Assessment and Plan - Assessment and Plan (Free Text) Assessment: 52 year old male with a PMH of AIDS with last know CD4 <20, anal carcinoma s/p chemoradiation to rectal admitted for perirectal pain and radiation dermatitis Plan: Severe neutropenia afebrile past 48 hours. blood cultures have been negative ANC increased after filgrastrim administration. WBC up to 2.0 continue on neutropenic precautions tylenol prn for neutropenic fevers AIDS Last known CD4 is <20 continue azithromycin 1200mg qwk for MAC ppx Continue combination-antiretroviral therapy with truvada(emtricitabine/tenofovir) and raltegravir Continue atovaquone (TMP-SMX contraindicated d/t neutropenia) for PJP, vanc, meropenem cryptococcous Ag is negative prelim cultures negative ID recs appreciated. Will transition to po antibiotics upon discharge Radiation Dermatitis start bacitracin in rectal area continue with aquaphor Likely 2/2 to post radiation skin changes hold laxatives. C. Diff stool Ag/toxin:negative 05/05 CT A/P showed no fluid collection near rectum, only inflammation Cont anusol continue calamine lotion Diarrhea hold laxatives continue loperamide most recent c.diff is negative Dry cough Given AIDS status with very low CD4 count will f/u ID recs Continue cepacol Tongue lesions Possible mucositis 2/2 chemo vs AIDS related, although does not appear infectious continue magic mouth wash Anorectal cancer will continue to hold radiation Ppx: lovenox/protonix Case seen, examined and discussed with attending physician Dr. Marlo Paez PGY1 <Felisha Sellers R - Last Filed: 05/12/18 08:05> Objective - Vital Signs/Intake and Output Vital Signs (last 24 hours): Temp Pulse Resp BP Pulse Ox 98.4 F 70 20 118/81 98 05/12/18 08:00 05/12/18 08:00 05/12/18 08:00 05/12/18 08:00 05/12/18 08:00 Intake and Output: 05/12/18 05/12/18 06:59 18:59 Intake Total 840 Balance 840 - Medications Medications: Current Medications Acetaminophen (Tylenol 325mg Tab) 650 mg PO Q4H PRN PRN Reason: Fever >100.4 F Last Admin: 05/08/18 17:16 Dose: 650 mg Azithromycin (Zithromax) 1,200 mg PO QWK [facility]; Protocol Bacitracin (Bacitracin) 1 ea TOP DAILY [facility] Last Admin: 05/11/18 09:04 Dose: 1 ea Benzocaine/Menthol (Cepacol Sore Throat) 1 suellen MT Q2H PRN PRN Reason: Sore Throat Last Admin: 05/11/18 09:04 Dose: 1 suellen Al Hydrox/Mg Hydrox/Simethicone 30 ml/Diphenhydramine HCl 75 mg/Lidocaine 30 ml 0 ml PO Q2H PRN PRN Reason: Mouth/Throat Pain Last Admin: 05/06/18 17:25 Dose: 1 soln Emtricitabine/Tenofovir (Truvada 200 Mg-300 Mg) 1 tab PO DAILY [facility]; Protocol Last Admin: 05/11/18 09:04 Dose: 1 tab Enoxaparin Sodium (Lovenox) 40 mg SC DAILY [facility]; Protocol Last Admin: 05/11/18 09:03 Dose: 40 mg Hydrocortisone (Anusol-Hc) 0 gm ME BID [facility] Last Admin: 05/11/18 18:11 Dose: 1 applic Meropenem (Merrem Iv 1 Gm Premix) 1 gm in 50 mls @ 100 mls/hr IVPB Q8 [facility]; Protocol Last Admin: 05/12/18 06:25 Dose: 100 mls/hr Vancomycin HCl (Vancomycin 1gm) 1 gm in 250 mls @ 167 mls/hr IVPB Q12H [facility]; Protocol Stop: 05/13/18 11:16 Last Admin: 05/11/18 22:58 Dose: 167 mls/hr Sodium Chloride (Sodium Chloride 0.9%) 1,000 mls @ 75 mls/hr IV .[id number] [facility] Last Admin: 05/11/18 13:32 Dose: 75 mls/hr Loperamide HCl (Imodium) 2 mg PO QID PRN PRN Reason: Diarrhea Multi-Ingredient Ointment (Hydrophor Oint) 0 gm TOP Q6H [facility] Last Admin: 05/12/18 06:50 Dose: Not Given Pantoprazole Sodium (Protonix Ec Tab) 40 mg PO 0600 [facility] Last Admin: 05/12/18 06:25 Dose: 40 mg Raltegravir (Isentress) 400 mg PO BID [facility]; Protocol Last Admin: 05/11/18 18:01 Dose: 400 mg - Labs Labs: 05/12/18 06:00 05/12/18 06:00 PT 11.1 SECONDS (9.4-12.5) 05/05/18 12:30 INR 1.00 05/05/18 12:30 APTT 29.1 Seconds (26.9-38.3) 05/05/18 12:30 Attending/Attestation - Attestation I have personally seen and examined this patient.: Yes I have fully participated in the care of the patient.: Yes I have reviewed all pertinent clinical information, including history, physical exam and plan: Yes Notes (Text): Patient seen and examined by me with resident at 9:50AM on 05/11/18. Case including HPI, physical exam, and assessment and plan discussed with resident. Agree with above with following additions/corrections. Patient is a 52 year old male with past medical history significant for AIDS and anal carcinoma that presented to the emergency room with perirectal pain and burning. Patient states he feels better. Still with diarrhea but patient states "that will never resolve. " Rectal pain slightly improved today. No nausea, vomiting, or abdominal pain. No chest pain or palpitations. No headaches or dizziness. No fevers or chills. No dysuria. Tolerating diet. Physical exam: General: Awake and alert sitting up in bed in no acute distress HEENT: Normocephalic, atraumatic. Extraocular muscles intact, pupils equal and reactive, no scleral icterus. Oropharynx is pink and moist. No pharyngeal erythema or exudate appreciated. Neck is supple. Cardiovascular: Regular rhythm. Normal S1 and S2. No murmurs, rubs, or gallops appreciated Pulmonary: Normal respiratory effort. No rhonchi, rales, or wheezing appreciated. Gastrointestinal: Soft, nondistended. Nontender. Positive bowel sounds all 4 quadrants. No guarding. Musculoskeletal: Moves all extremities. No calf tenderness. No edema appre ciated Central nervous system: AAOx3, CN 2-12 grossly intact. Dermatologic: Skin warm and dry. Buttocks with peeling skin. Assessment and plan: Patient is a 52 year old male with past medical history significant for AIDS and anal carcinoma that presented to the emergency room with perirectal pain and burning. 1. Neutropenic fever/Pancytopenia. Remains afebrile. S/P granix 05/08/18 and 05/10/18 with improvement. ID following, recommendations appreciated. Blood cultures and urine cultures with no growth. C-diff negative. Serum cryptococcus antigen not detected. Continue Tylenol as needed. Continue vancomycin and Merrem. Will likely change to PO antibiotics in next 24 hours. Hem/onc following , recommendations appreciated. 2. Cellulitis vs radiation dermatitis. More likely radiation dermatitis. Continue with pain control. Continue with anusol cream and bacitracin. CT abd/pelvis per radiologist showed no evidence of perianal abscess formation, moderate diffuse thickening of the distal rectum and anal canal noted likely related to the patients known history of squamous cell carcinoma of the anal canal, moderate circumferential urinary bladder wall thickening. 3. Diarrhea. Likely secondary to chemo and radiation. C-diff negative. Continue immodium as needed, patient was taking this as an outpatient. 4. Rectal pain. Continue anusol-HC per rectum BID. Continue aquaphor. Continue bacitracian for open fissures. 5. Transaminitis. May be secondary to medications. Stable. Continue to monitor. 6. Oral Mucositis. Continue with Magic mouthwash. 7. Squamous cell carcinoma of the anal canal. Hem/onc following, recommendations appreciated. S/P chemo. Radiation on hold for now per Radiation oncologist. 8. AIDS. Continue Isentress and Truvada. Continue Zithromax 1200mg weekly. Continue Mepron 750mg PO BID. 9. Homelessness. Social work following. 10. GI/DVT prophylaxis. Protonix/Lovenox 11. Patient is a full code. Case was discussed in detail with the patient regarding current diagnosis and treatment plan. All questions answered.
[2018-05-11] MEDS ORDERED: Potassium Chloride 20 mEq ER Tab PO STA (15:00)
[2018-05-11 16:27] VITALS: RESP 20
--- NOTE | 2018-05-11 21:09 | CP.PCM.PN ---
Subjective - Date & Time of Evaluation Date of Evaluation: 05/11/18 Time of Evaluation: 17:00 - Subjective Subjective: Feeling better Objective - Vital Signs/Intake and Output Vital Signs (last 24 hours): Temp Pulse Resp BP Pulse Ox 98.0 F 70 20 118/83 98 05/11/18 16:27 05/11/18 16:27 05/11/18 16:27 05/11/18 16:27 05/11/18 16:27 - Medications Medications: Current Medications Acetaminophen (Tylenol 325mg Tab) 650 mg PO Q4H PRN PRN Reason: Fever >100.4 F Last Admin: 05/08/18 17:16 Dose: 650 mg Azithromycin (Zithromax) 1,200 mg PO QWK [facility]; Protocol Bacitracin (Bacitracin) 1 ea TOP DAILY [facility] Last Admin: 05/11/18 09:04 Dose: 1 ea Benzocaine/Menthol (Cepacol Sore Throat) 1 suellen MT Q2H PRN PRN Reason: Sore Throat Last Admin: 05/11/18 09:04 Dose: 1 suellen Al Hydrox/Mg Hydrox/Simethicone 30 ml/Diphenhydramine HCl 75 mg/Lidocaine 30 ml 0 ml PO Q2H PRN PRN Reason: Mouth/Throat Pain Last Admin: 05/06/18 17:25 Dose: 1 soln Emtricitabine/Tenofovir (Truvada 200 Mg-300 Mg) 1 tab PO DAILY [facility]; Protocol Last Admin: 05/11/18 09:04 Dose: 1 tab Enoxaparin Sodium (Lovenox) 40 mg SC DAILY [facility]; Protocol Last Admin: 05/11/18 09:03 Dose: 40 mg Hydrocortisone (Anusol-Hc) 0 gm ND BID [facility] Last Admin: 05/11/18 18:11 Dose: 1 applic Meropenem (Merrem Iv 1 Gm Premix) 1 gm in 50 mls @ 100 mls/hr IVPB Q8 [facility]; Pr otocol Last Admin: 05/11/18 13:31 Dose: 100 mls/hr Vancomycin HCl (Vancomycin 1gm) 1 gm in 250 mls @ 167 mls/hr IVPB Q12H [facility]; Protocol Stop: 05/13/18 11:16 Last Admin: 05/11/18 11:32 Dose: 167 mls/hr Sodium Chloride (Sodium Chloride 0.9%) 1,000 mls @ 75 mls/hr IV .[id number] [facility] Last Admin: 05/11/18 13:32 Dose: 75 mls/hr Loperamide HCl (Imodium) 2 mg PO QID PRN PRN Reason: Diarrhea Multi-Ingredient Ointment (Hydrophor Oint) 0 gm TOP Q6H [facility] Pantoprazole Sodium (Protonix Ec Tab) 40 mg PO 0600 [facility] Last Admin: 05/11/18 06:03 Dose: 40 mg Raltegravir (Isentress) 400 mg PO BID [facility]; Protocol Last Admin: 05/11/18 18:01 Dose: 400 mg - Labs Labs: 05/11/18 09:20 05/11/18 09:20 PT 11.1 SECONDS (9.4-12.5) 05/05/18 12:30 INR 1.00 05/05/18 12:30 APTT 29.1 Seconds (26.9-38.3) 05/05/18 12:30 - Head Exam Head Exam: ATRAUMATIC - Eye Exam Eye Exam: Normal appearance - ENT Exam ENT Exam: Mucous Membranes Dry - Respiratory Exam Respiratory Exam: NORMAL BREATHING PATTERN - Cardiovascular Exam Cardiovascular Exam: +S1, +S2 - GI/Abdominal Exam GI & Abdominal Exam: Normal Bowel Sounds Assessment and Plan (1) Pancytopenia Assessment & Plan: multifactorial AIDS, alcoholism, chemoradiation s/p growth factor support mild neutropenia Status: Acute (2) Anal cancer Assessment & Plan: outpatient treatment Status: Acute
[2018-05-12] MEDS: Pantoprazole 40 mg EC Tab PO SCH (06:25)
[2018-05-12] MEDS: Meropenem IV 1 gm in NS 1 GM/50 ML BAG IVPB SCH ×2 (06:25→15:29)
[2018-05-12] MEDS: Petrolatum-Mineral Oil Oint (100gm) TOP SCH ×3 (06:50→17:17)
[2018-05-12 07:11] LABS: BASO # 0.06 K/mm3 (0.0-2.0); BASO % 1.6 % (0.0-3.0); EOS # 0.1 (0.0-0.7); EOS % 1.4 % (1.5-5.0); HEMOGLOBIN 10.1 g/dL (14.0-18.0); LYMPH # 0.3 (1.2-3.4); LYMPH % 9.2 % (22.0-35.0); MEAN CELL VOLUME 86.9 fl (80.0-105.0); MEAN CORPUSCULAR HEMOGLOBIN 28.7 pg (25.0-35.0); MONO % 27.4 % (1.0-6.0); PLATELET COUNT 72 10^3/uL (120.0-450.0); RBC 3.52 10^6/uL (3.5-6.1); RED CELL DISTRIBUTION WIDTH 16.3 % (11.5-14.5); WHITE BLOOD COUNT 3.7 10^3/uL (4.5-11.0)
[2018-05-12 07:36] LABS: ALBUMIN 3.3 g/dL (3.0-4.8); BLOOD UREA NITROGEN 10 mg/dL (7-21); CALCIUM 8.9 mg/dL (8.4-10.5); GFR NON-AFRICAN AMERICAN > 60
[2018-05-12 07:37] LABS: ALT/SGPT 110 U/L (7-56); AST/SGOT 94 U/L (17-59)
[2018-05-12 08:00] VITALS: TEMP 98.4
[2018-05-12 08:46] LABS: BAND 9 % (0-2); LYMPHOCYTE 9 % (22.0-35.0); METAMYELOCYTE 3 %; MONOCYTE 19 % (1.0-6.0); NEUTROPHIL 60 % (50.0-70.0)
[2018-05-12 08:47] LABS: PLATELET ESTIMATE LOW (NORMAL)
[2018-05-12] MEDS: Bacitracin 500 Units/gm Oint Foilpak UD TOP SCH (11:20)
[2018-05-12] MEDS: Enoxaparin 40 mg Syringe SC SCH (11:20)
[2018-05-12] MEDS: Emtricitabine-Tenofovir 200 mg-300 mg Tab PO SCH (11:20)
[2018-05-12] MEDS: Sodium Chloride 0.9% 1,000 ML IV SCH (11:21)
[2018-05-12] MEDS: Hydrocortisone 2.5% Rectal Cream(30 gm) PR SCH ×2 (11:42→18:17)
[2018-05-12] MEDS: Vancomycin 1gm in NS 250ml 1 GM/250 ML BAG IVPB SCH (11:45)
[2018-05-12 15:48] VITALS: BP 124/87; PULSE 79; O2SAT 96
--- NOTE | 2018-05-12 15:57 | CP.PCM.PN ---
Subjective - Date & Time of Evaluation Date of Evaluation: 05/12/18 Time of Evaluation: 13:15 - Subjective Subjective: No fevers, not in distress, still with pain in the perianal area but less, no nausea, no diarrhea. Objective - Vital Signs/Intake and Output Vital Signs (last 24 hours): Temp Pulse Resp BP Pulse Ox 98.1 F 77 17 137/89 99 05/11/18 08:23 05/11/18 08:23 05/11/18 08:23 05/11/18 08:23 05/11/18 08:23 - Medications Medications: Current Medications Acetaminophen (Tylenol 325mg Tab) 650 mg PO Q4H PRN PRN Reason: Fever >100.4 F Last Admin: 05/08/18 17:16 Dose: 650 mg Atovaquone (Mepron) 750 mg PO BID [facility]; Protocol Stop: 05/15/18 18:01 Last Admin: 05/11/18 09:04 Dose: 750 mg Azithromycin (Zithromax) 1,200 mg PO QWK [facility]; Protocol Bacitracin (Bacitracin) 1 ea TOP DAILY [facility] Last Admin: 05/11/18 09:04 Dose: 1 ea Benzocaine/Menthol (Cepacol Sore Throat) 1 suellen MT Q2H PRN PRN Reason: Sore Throat Last Admin: 05/11/18 09:04 Dose: 1 suellen Calamine (Calamine Lotion) 0 ml TOP BID [facility] Last Admin: 05/11/18 09:06 Dose: 1 ml Al Hydrox/Mg Hydrox/Simethicone 30 ml/Diphenhydramine HCl 75 mg/Lidocaine 30 ml 0 ml PO Q2H PRN PRN Reason: Mouth/Throat Pain Last Admin: 05/06/18 17:25 Dose: 1 soln Emtricitabine/Tenofovir (Truvada 200 Mg-300 Mg) 1 tab PO DAILY [facility]; Protocol Last Admin: 05/11/18 09:04 Dose: 1 tab Enoxaparin Sodium (Lovenox) 40 mg SC DAILY [facility]; Protocol Last Admin: 05/11/18 09:03 Dose: 40 mg Hydrocortisone (Anusol-Hc) 0 gm AR BID [facility] Last Admin: 05/11/18 09:04 Dose: 1 applic Meropenem (Merrem Iv 1 Gm Premix) 1 gm in 50 mls @ 100 mls/hr IVPB Q8 [facility]; Protocol Last Admin: 05/11/18 13:31 Dose: 100 mls/hr Vancomycin HCl (Vancomycin 1gm) 1 gm in 250 mls @ 167 mls/hr IVPB Q12H [facility]; Protocol Stop: 05/13/18 11:16 Last Admin: 05/11/18 11:32 Dose: 167 mls/hr Sodium Chloride (Sodium Chloride 0.9%) 1,000 mls @ 75 mls/hr IV .[id number] [facility] Last Admin: 05/11/18 13:32 Dose: 75 mls/hr Loperamide HCl (Imodium) 2 mg PO QID PRN PRN Reason: Diarrhea Multi-Ingredient Ointment (Hydrophor Oint) 0 gm TOP Q6H [facility] Last Admin: 05/11/18 09:06 Dose: 1 applic Pantoprazole Sodium (Protonix Ec Tab) 40 mg PO 0600 [facility] Last Admin: 05/11/18 06:03 Dose: 40 mg Raltegravir (Isentress) 400 mg PO BID [facility]; Protocol Last Admin: 05/11/18 09:04 Dose: 400 mg - Labs Labs: 05/11/18 09:20 05/11/18 09:20 PT 11.1 SECONDS (9.4-12.5) 05/05/18 12:30 INR 1.00 05/05/18 12:30 APTT 29.1 Seconds (26.9-38.3) 05/05/18 12:30 - Constitutional Appears: Chronically Ill - Head Exam Head Exam: NORMAL INSPECTION - Respiratory Exam Respiratory Exam: Decreased Breath Sounds - Cardiovascular Exam Cardiovascular Exam: +S1, +S2 - GI/Abdominal Exam GI & Abdominal Exam: Soft. 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 Carley Sellers - patient needs to be followed in an HIV clinic and he should follow up with Heme/Onc
--- NOTE | 2018-05-12 16:55 | CP.PCM.DIS ---
Provider - Provider Date of Admission: 05/05/18 16:26 Attending physician: Felisha Sellers DO Consults: 05/05/18 17:49 Wound Care [Nursing Referral for Wound Care] Routine Comment: Physician Instructions: Reason For Exam: Anal skin tears 05/05/18 17:50 Infectious Disease Consult Routine Comment: Consulting Provider: Hany Cortes Consulting Physician: Hany Cortes Reason for Consult: AIDS and low WBC count 05/06/18 02:59 Social Work Referral Routine Comment: Kaushik score of 8 Physician Instructions: Reason For Exam: Homeless 05/06/18 08:01 Palliative Care Consult Routine Comment: Consulting Provider: Madeleine Bender Physician Instructions: Reason For Exam: AIDS/ rectal CA 05/06/18 09:35 Hematology Oncology Consult Routine Comment: Consulting Provider: Jose Ren Consulting Physician: Jose Ren Reason for Consult: neutropenia, s/p chemotherapy rectal ca 05/06/18 15:13 Nursing Referral for Wound Care Routine Comment: Physician Instructions: Reason For Exam: scoriation from radiation. 05/09/18 20:26 Nursing Referral for Wound Care Routine Comment: Physician Instructions: Reason For Exam: RADIATION BURN TO H[place]BERTO AREA Time Spent in preparation of Discharge (in minutes): 45 Diagnosis - Discharge Diagnosis (1) AIDS Status: Chronic (2) Neutropenia Status: Resolved (3) Oral mucositis Status: Acute (4) Radiation dermatitis Status: Acute (5) Homelessness Status: Chronic (6) Pancytopenia Status: Chronic (7) Alcohol abuse Status: Chronic (8) Anal cancer Status: Chronic (9) HIV disease Status: Chronic Hospital Course - Lab Results Lab Results: Micro Results 05/07/18 12:45 Blood Blood Culture - Final NO GROWTH AFTER 5 DAYS 05/07/18 12:45 Blood Gram Stain - Final TEST NOT PERFORMED 05/07/18 12:10 Blood Blood Culture - Final NO GROWTH AFTER 5 DAYS 05/07/18 12:10 Blood Gram Stain - Final TEST NOT PERFORMED 05/05/18 12:30 Blood-Venous Blood Culture - Final NO GROWTH AFTER 5 DAYS 05/05/18 12:30 Blood-Venous Gram Stain - Final TEST NOT PERFORMED 05/05/18 12:30 Blood-Venous Blood Culture - Final NO GROWTH AFTER 5 DAYS 05/05/18 12:30 Blood-Venous Gram Stain - Final TEST NOT PERFORMED 05/07/18 15:00 Stool Stool Culture - Final NO SALMONELLA, SHIGELLA OR CAMPYLOBACTER ISOLATED. 05/07/18 15:00 Stool C. difficile Antigen & Toxins A,B - Final 05/05/18 11:55 Urine Random Urine Culture - Final No Growth (<1,000 CFU/ML) Most Recent Lab Values WBC 3.7 10^3/uL (4.5-11.0) L D 05/12/18 06:00 RBC 3.52 10^6/uL (3.5-6.1) 05/12/18 06:00 Hgb 10.1 g/dL (14.0-18.0) L 05/12/18 06:00 Hct 30.6 % (42.0-52.0) L 05/12/18 06:00 MCV 86.9 fl (80.0-105.0) 05/12/18 06:00 MCH 28.7 pg (25.0-35.0) 05/12/18 06:00 MCHC 33.0 g/dl (31.0-37.0) 05/12/18 06:00 RDW 16.3 % (11.5-14.5) H 05/12/18 06:00 Plt Count 72 10^3/uL (120.0-450.0) L 05/12/18 06:00 MPV 11.0 fl (7.0-11.0) 05/12/18 06:00 Neut % (Auto) 60.4 % (50.0-68.0) 05/12/18 06:00 Lymph % (Auto) 9.2 % (22.0-35.0) L 05/12/18 06:00 Door % (Auto) 27.4 % (1.0-6.0) H 05/12/18 06:00 Eos % (Auto) 1.4 % (1.5-5.0) L 05/12/18 06:00 Baso % (Auto) 1.6 % (0.0-3.0) 05/12/18 06:00 Lymph # (Auto) 0.3 (1.2-3.4) L 05/12/18 06:00 Door # (Auto) 1.0 (0.1-0.6) H 05/12/18 06:00 Eos # (Auto) 0.1 (0.0-0.7) 05/12/18 06:00 Baso # (Auto) 0.06 K/mm3 (0.0-2.0) 05/12/18 06:00 Absolute Neuts (auto) 2.23 (1.4-6.5) 05/12/18 06:00 Neutrophils % (Manual) 60 % (50.0-70.0) 05/12/18 06:00 Band Neutrophils % 9 % (0-2) H 05/12/18 06:00 Lymphocytes % (Manual) 9 % (22.0-35.0) L 05/12/18 06:00 Atypical Lymphs % 16 % (0.0-0.0) H 05/11/18 09:20 Monocytes % (Manual) 19 % (1.0-6.0) H 05/12/18 06:00 Eosinophils % (Manual) 2 % (0.0-3.0) 05/09/18 06:00 Metamyelocytes % 3 % 05/12/18 06:00 Toxic Granulation 1+ 05/05/18 12:30 Platelet Evaluation Low (NORMAL) 05/12/18 06:00 Hypochromasia 1+ 05/05/18 12:30 Poikilocytosis (manual Slight 05/11/18 09:20 Anisocytosis (manual) 1+ 05/05/18 12:30 Ovalocytes Slight 05/11/18 09:20 PT 11.1 SECONDS (9.4-12.5) 05/05/18 12:30 INR 1.00 05/05/18 12:30 APTT 29.1 Seconds (26.9-38.3) 05/05/18 12:30 Sodium 138 mmol/L (132-148) 05/12/18 06:00 Potassium 3.8 mmol/L (3.6-5.0) 05/12/18 06:00 Chloride 105 mmol/L (98-107) 05/12/18 06:00 Carbon Dioxide 31 mmol/L (21-33) 05/12/18 06:00 Anion Gap 7 (10-20) L 05/12/18 06:00 BUN 10 mg/dL (7-21) 05/12/18 06:00 Creatinine 0.6 mg/dl (0.8-1.5) L 05/12/18 06:00 Est GFR ( Amer) > 60 05/12/18 06:00 Est GFR (Non-Af Amer) > 60 05/12/18 06:00 POC Glucose (mg/dL) 71 mg/dL (65-110) 05/11/18 11:38 Random Glucose 95 mg/dL (70-110) 05/12/18 06:00 Calcium 8.9 mg/dL (8.4-10.5) 05/12/18 06:00 Phosphorus 3.3 mg/dL (2.5-4.5) 05/11/18 06:15 Magnesium 1.9 mg/dL (1.7-2.2) 05/11/18 06:15 Total Bilirubin 0.3 mg/dL (0.2-1.3) 05/12/18 06:00 AST 94 U/L (17-59) H 05/12/18 06:00 ALT 110 U/L (7-56) H 05/12/18 06:00 Alkaline Phosphatase 94 U/L (38-126) 05/12/18 06:00 Total Protein 6.8 g/dL (5.8-8.3) 05/12/18 06:00 Albumin 3.3 g/dL (3.0-4.8) 05/12/18 06:00 Globulin 3.5 gm/dL 05/12/18 06:00 Albumin/Globulin Ratio 1.0 (1.1-1.8) L 05/12/18 06:00 Urine Color Yellow (YELLOW) 05/08/18 04:30 Urine Appearance Clear (CLEAR) 05/08/18 04:30 Urine pH 6.0 (4.7-8.0) 05/08/18 04:30 Ur Specific [place] >= 1.030 (1.005-1.035) 05/08/18 04:30 Urine Protein Negative mg/dL (<30 mg/dL) 05/08/18 04:30 Urine Glucose (UA) Negative mg/dL (NEGATIVE) 05/08/18 04:30 Urine Ketones Negative mg/dL (NEGATIVE) 05/08/18 04:30 Urine Blood Negative (NEGATIVE) 05/08/18 04:30 Urine Nitrate Negative (NEGATIVE) 05/08/18 04:30 Urine Bilirubin Negative (NEGATIVE) 05/08/18 04:30 Urine Urobilinogen 0.2 E.U./dL (<1 E.U./dL) 05/08/18 04:30 Ur Leukocyte Esterase Negative Connor/uL (NEGATIVE) 05/08/18 04:30 Urine RBC 0 - 2 /hpf (0-2) 05/05/18 11:55 Urine WBC 1 - 3 /hpf (0-6) 05/05/18 11:55 Ur Epithelial Cells 0 - 2 /hpf (0-5) 05/05/18 11:55 Amorphous Sediment Small /hpf (NONE) 05/05/18 11:55 Urine Bacteria Many /hpf (NONE) 05/05/18 11:55 Cryptococcus Ag Screen Not detected (Not Detected) 05/07/18 11:45 Blood Type A POSITIVE 05/05/18 13:00 Blood Type Confirm A POSITIVE 05/05/18 14:00 Antibody Screen Negative 05/05/18 13:00 BBK History Checked No verified bt 05/05/18 13:00 - Hospital Course Hospital Course: Upon Admission: 52 yo M with pmhx of AIDS (last CD4 count <20 on 04/25/18), anal ca who comes in to the ED for complaint of perirectal pain related to his current treatment regiment of chemo and radiation. Pt states that he received his last chemo treatment three days befre admission and that he receives radiation to the area M-F. Pt states that he has been having 10/10 pain in the area and he denied any constipation or diarrhea, any bladder or bowel incontinence. He admitted to an external hemorrhoid but stated that it does not cause him pain during defecation at this time due to him taking stool softeners to prevent him straining. He took an outpatient course of antibiotics and has not responded and presents to the ED from doctors office to r/o intra-abdominal infection. Hospital Course: CXR was performed in ED revealing no active disease. CT Abdomen revealed no perianal abscess formation. Moderate diffuse thickening of the distal rectum and anal canal noted likely related to the pt's known history of squamous cell carcinoma of the anal canal. Moderate circumferential urinary bladder wall thickening. Pt was evaluated and followed by ID throughout hospital course. Pt was continued on his home Raltegravir Isentress and Truvada (emtricitabine/tenofovir). Pt was intially treated with TMP-SMX prophylaxis, however it was discontinued and switched to atovaquone d/t bone marrow suppression. Pt was also treated with azithromycin for MAC prophylaxis. He was treated for SIRS with vancomycin & meropenem. His rash was treated with calamine lotion and aquaphor. Pt was also followed by his own emergency communications officer/oncologist & radiation oncologist. Pt was found to have severe neutropenia and underwent 2 doses of filgastrim upon the recommendation of heme/onc. Pt's ANC had responded appropriately. Pt remained afebrile for several days upon day of discharge Upon Discharge: Pt is feeling better. His vital signs are stable. His ANC has increaesed to a point wnl. He is to be discharged to [facility] in [place]. He was instructed to follow up with PMD, radiation-oncologist, heme-onc & ID. Discharge Exam - Head Exam Head Exam: NORMAL INSPECTION - Eye Exam Eye Exam: EOMI, Normal appearance - ENT Exam ENT Exam: Mucous Membranes Moist, Normal Exam - Neck Exam Neck exam: Normal Inspection - Respiratory Exam Respiratory Exam: NORMAL BREATHING PATTERN, UNREMARKABLE - Cardiovascular Exam Cardiovascular Exam: REGULAR RHYTHM, +S1, +S2 - GI/Abdominal Exam GI & Abdominal Exam: Normal Bowel Sounds, Unremarkable - Rectal Exam Rectal Exam: Hemorrhoids Additional comments: diffuse healing rash around perineum - Extremities Exam Extremities exam: normal inspection - Back Exam Back exam: NORMAL INSPECTION - Neurological Exam Neurological exam: Alert, Oriented x3 - Psychiatric Exam Psychiatric exam: Normal Affect, Normal Mood - Skin Skin Exam: Erythema (perineal, groin), Warm Discharge Plan - Discharge Medications Prescriptions: Atovaquone [Mepron] 1,500 mg PO DAILY #14 packet Azithromycin [Zithromax] 1,200 mg PO WED #4 tab Bacitracin 1 ea TOP DAILY #1 tube Emtricitabine/Tenofovir (Tdf) [Truvada 200 mg-300 mg Tablet] 1 each PO DAILY #14 tablet Hydrocortisone 2.5% (Rectal) [Anusol-Hc] 1 gm HI BID #1 tube Levofloxacin [Levaquin] 500 mg PO DAILY #3 tablet Metronidazole [Flagyl] 500 mg PO TID #9 tablet - Follow Up Plan Condition: GUARDED Disposition: HOME/ ROUTINE Instructions: Radiation Therapy, External, Wound Care (DC), Neutropenia (DC), Cellulitis (DC), Cellulitis (GEN) Additional Instructions: Please follow up with your primary care doctor, Dr. Lindy Hamlin at [facility], within 3-5 days of discharge. Please follow up with your emergency communications officer/ongologist (cancer doctor), Dr. Ren, with 3-5 days of discharge Please follow up with your radiation/oncologist (radiation doctor), Dr. Bustillo, within 3-5 days of discharge. You will need to go for radiation on Tuesday05/15/18. Please establish care with the infectious disease doctor (HIV doctor) who took care of you here, Dr. Becerril, within 3-5 days of discharge. You are being given a prescription for your HIV medication - Truvada. Please take this every day as prescribed, and discuss it with your infectious diseases doctor, Dr. Becerril. You are being given a prescription for antibiotics as follow that you will take for 3 days: Levofloxacin (Levaquin) 500 mg tablets - take one tablet one time a day with food, for a total of 3 days. Metronidazole (Flagyl) 500 mg tablets - take one tablet three times a day with food, for a total of 3 days. Please note: DO NOT DRINK ALCOHOL WHILE TAKING FLAGYL (METRONIDAZOLE) ! IT WILL CAUSE A SERIOUS REACTION THAT WILL MAKE YOU VERY SICK. Please resume the medications that you were taking previously Please discuss all your medications with your primary care doctor If your symptoms return, or you experience new symptoms, please return to the nearest emergency room Referrals: Mine Bustillo MD [Staff Provider] - Jose Ren MD [Staff Provider] - Lindy Hamlin MD [Medical Doctor] - Han Becerril MD [Staff Provider] -
--- NOTE | 2018-05-12 21:48 | CP.PCM.PN ---
Subjective - Date & Time of Evaluation Date of Evaluation: 05/12/18 Time of Evaluation: 12:00 - Subjective Subjective: Less pain. Objective - Vital Signs/Intake and Output Vital Signs (last 24 hours): Temp Pulse Resp BP Pulse Ox 98.4 F 79 20 124/87 96 05/12/18 15:48 05/12/18 15:48 05/12/18 15:48 05/12/18 15:48 05/12/18 15:48 - Labs Labs: 05/12/18 06:00 05/12/18 06:00 PT 11.1 SECONDS (9.4-12.5) 05/05/18 12:30 INR 1.00 05/05/18 12:30 APTT 29.1 Seconds (26.9-38.3) 05/05/18 12:30 - Head Exam Head Exam: ATRAUMATIC - Eye Exam Eye Exam: Normal appearance - ENT Exam ENT Exam: Mucous Membranes Dry - Respiratory Exam Respiratory Exam: NORMAL BREATHING PATTERN - Cardiovascular Exam Cardiovascular Exam: +S1, +S2 - GI/Abdominal Exam GI & Abdominal Exam: Normal Bowel Sounds Assessment and Plan (1) Pancytopenia Assessment & Plan: improved s/p growth factor support Status: Chronic (2) Anal cancer Assessment & Plan: outpatient chemoradiation Status: Chronic
== END 2018-05-12 19:29 | disposition home or self-care (01) | DRG 563 ==
LOC: ED 11:10 → ERH 16:26 → 3RNO 18:45
PROVIDERS: ADMIT Internal Medicine; ATTEND Hospitalist
DX: L59.8 Other specified disorders of the skin and subcutaneous tissue related to radiation (principal); B20 Human immunodeficiency virus [HIV] disease; R65.10 Systemic inflammatory response syndrome (SIRS) of non-infectious origin without acute organ dysfunction; C21.1 Malignant neoplasm of anal canal; D61.818 Other pancytopenia; K62.89 Other specified diseases of anus and rectum; L30.9 Dermatitis, unspecified; T45.1X5A Adverse effect of antineoplastic and immunosuppressive drugs, initial encounter; Y84.2 Radiological procedure and radiotherapy as the cause of abnormal reaction of the patient, or of later complication, without mention of misadventure at the time of the procedure; D70.9 Neutropenia, unspecified; K12.30 Oral mucositis (ulcerative), unspecified; F10.20 Alcohol dependence, uncomplicated; F32.89 Other specified depressive episodes; K14.6 Glossodynia; K59.00 Constipation, unspecified; K64.4 Residual hemorrhoidal skin tags; R13.10 Dysphagia, unspecified; R50.81 Fever presenting with conditions classified elsewhere; Z59.0 Homelessness; Z72.0 Tobacco use; Z91.14 Patient's other noncompliance with medication regimen; F19.11 Other psychoactive substance abuse, in remission

== ENCOUNTER 2018-06-08 10:54 | Outpatient (CLI) | payer MEDICAID | END 2018-06-08 10:55 | disposition home or self-care (01) | LOC: LAB 10:54 ==